=== PATIENT | male | born 1975 | race Caucasian/White ===

== ENCOUNTER 2023-08-19 08:06 | Outpatient (AMB) | payer BC, OTHER, SELFPAY ==
--- NOTE | 2023-08-19 08:07 | AM.OFFWIN_ITS ---
Intake Vital Signs 08/19/23 08:16 Height 5 ft 10 in Weight 287 lb BMI 41.2 BP 102/60 Blood Pressure Location Rt brachial Position Sitting Pulse 68 Pulse Source Pulse Oximeter Temp 97.8 F Temp Source Oral Pulse Oximetry (%) 97 Oxygen Delivery Method Room Air Intake Visit Reasons: EP DVT flare up Intake Note: pt is here for c/o diverticulitis flare up Patient Tobacco Use Status: Former Tobacco user Allergies No Known Allergies [NKA] Allergy (Verified 08/19/23 08:15) Do you need a note to return to daycare/school/sports/work: Yes HPI EP DVT flare up HPI Details This is a 48 year old patient who presents today with left lateral/anterior abdominal discomfort. He has a history of diverticulitis and had a resection for this when he was 18. He continued to have flares of diverticulitis starting about 5 years following surgery. He states he manages this with diet and food avoidances. He reports that flares typically start on his left side, and he has to go on antibiotics for this. Last flare was 1.5 years ago. He denies any blood in stool. He denies any fever, chills, or fatigue. Reports abdominal pain is a dull ache. He has been using a heating pad and taking some tylenol without relief. He could not get into his PCP at [facility] until next week. HPI Comments History of Present Illness Details 48 y/o male patient who presents to walk in clinic with c/o [facility] Social History Patient Tobacco Use Status: Former Tobacco user Review of Systems Const All systems reviewed & are unremarkable except as noted in HPI and below Physical Exam Vital Signs: Last Vital Signs Temp 97.8 F 08/19/23 08:16 Pulse 68 08/19/23 08:16 BP 102/60 08/19/23 08:16 Pulse Ox 97 08/19/23 08:16 Oxygen Delivery Method Room Air 08/19/23 08:16 BMI result Body Mass Index 41.2 Const General: cooperative, healthy appearing and no acute distress Nutritional Appearance: obese Neck Neck: Yes no lymphadenopathy Resp Effort & Inspection: normal respiratory effort Auscultation: clear to auscultation bilaterally Cardio Other: ICD implant Rate: regular rate Rhythm: regular rhythm GI Other: umb hernia - patient reports stable Inspection: Yes normal to inspection and Yes obesity Palpation (GI): Soft to palpation, Tenderness to palpation present (GI) in the LLQ (no guarding, no rebound ttp) and No hepatosplenomegaly present Auscultation: normal bowel sounds Skin General skin exam: no rashes or lesions noted Extrem General: Yes capillary refill normal and Yes no clubbing, cyanosis or edema Psych Appearance: grossly normal Mental Status: mental status grossly normal Speech and movement: Normal speech and movement present Assessment & Plan Assessment & Plan (1) Left lower quadrant abdominal pain: Code(s): R10.32 - Left lower quadrant pain Plan: History of diverticulitis - patient having similar symptoms to when he has a flare of this. He could not get into PCP. I am going to start him on PO Cipro and Metronidazole. He states he had a flare 1.5 years ago and this regimen resolved issue. We discussed at length that should his symptoms worsen, he develop any fever, chills, fatigue, blood in stool, or worsening pain, he should go to the ED for evaluation. We reviewed indications, use, and possible s/e of medications. We reviewed proper diet to follow and warning signs necessitating ED eval. He verbalizes understanding and agrees to plan. He should call for f/u with PCP. Medications: New ciprofloxacin HCl 500 mg PO Q12H 10 days 20 tabs 0RF K57.92 - Diverticulitis of intestine, part unspecified, without perforation or abscess without bleeding metronidazole 500 mg PO Q8H 10 days 30 tabs 0RF K57.92 - Diverticulitis of intestine, part unspecified, without perforation or abscess without bleeding Coding Level of Care Code Est Pt Level 4 (00566) Diagnoses Left lower quadrant abdominal pain R10.32
[2023-08-19 08:16] VITALS: BP 102/60; PULSE 68; TEMP 36.6; O2SAT 97; BMI 41.2
== END 2023-08-19 09:19 | disposition home or self-care (01) ==
PROVIDERS: PCP Internal Medicine; Visit Provider Nurse Practitioner Family
DX: R10.32 Left lower quadrant pain (principal)
CPT/HCPCS: 99214

== ENCOUNTER 2023-12-09 08:07 | Outpatient (AMB) | payer BC, SELFPAY ==
--- NOTE | 2023-12-09 08:13 | AM.OFFWIN_ITS ---
Intake Vital Signs 12/09/23 08:14 Height 5 ft 10 in Weight 281 lb BMI 40.3 BP 116/80 Blood Pressure Location Lt brachial Position Sitting Pulse 71 Pulse Source Pulse Oximeter Temp 98.1 F Temp Source Oral Pulse Oximetry (%) 95 Oxygen Delivery Method Room Air Intake Visit Reasons: EP diverticulitis flare up Intake Note: pt c/o diverticulitis flare. Started 2 days ago Patient Tobacco Use Status: Former Tobacco user Allergies No Known Allergies [NKA] Allergy (Verified 12/09/23 08:14) Do you need a note to return to daycare/school/sports/work: No HPI EP diverticulitis flare up HPI Details This note is constructed using voice recognition software. While every effort has been made to ensure accuracy, coil taper errors may have been included. The patient is a 48 year old male who presents to the clinic today with left lower quadrant pain, concern for diverticulitis flare. He notes that he has had diverticulitis since he was 18, and has intermittent flares. He was last seen in the clinic in August for the same. His flares typically start with left lower q uadrant pain, and some constipation. He typically then we will transition himself from a high-fiber diet to a low-fiber diet immediately to help resolve the symptoms. If he is diligent about getting treatment and getting on antibiotics, he avoids excess symptoms. 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 He denies fever, chills, nausea, vomiting, blood per rectum. [facility] Social History Patient Tobacco Use Status: Former Tobacco user Review of Systems Const All systems reviewed & are unremarkable except as noted in HPI and below Physical Exam Vital Signs: Last Vital Signs Temp 98.1 F 12/09/23 08:14 Pulse 71 12/09/23 08:14 BP 116/80 12/09/23 08:14 Pulse Ox 95 12/09/23 08:14 Oxygen Delivery Method Room Air 12/09/23 08:14 BMI result Body Mass Index 40.3 Const General: cooperative, healthy appearing, comfortable, no acute distress and alert Orientation/consciousness: patient oriented x3 Limitations: no limitations Neck Neck: Yes normal visual inspection, Yes full ROM and Yes no lymphadenopathy Resp Effort & Inspection: normal respiratory effort and able to speak in complete sentences Auscultation: clear to auscultation bilaterally Cardio Jugular venous distension: no JVD Palpation: normal PMI Rate: regular rate Heart sounds: S1 normal heart sound present, S2 normal heart sound present, no click, no gallops, no murmurs and no rubs GI Inspection: Yes normal to inspection Palpation (GI): Soft to palpation and Tenderness to palpation present (GI) in the LLQ Percussion: Yes normal to percussion Auscultation: normal bowel sounds Skin General skin exam: no rashes or lesions noted, elasticity normal and turgor normal Neuro General: patient oriented x3 Psych Appearance: grossly normal Mental Status: mental status grossly normal Speech and movement: Normal speech and movement present Affect: normal affect Assessment & Plan Assessment & Plan (1) Left lower quadrant abdominal pain: Code(s): R10.32 - Left lower quadrant pain Plan: Patient is likely experiencing diverticulitis flare based on symptom in history, we will start antibiotic ciprofloxacin and metronidazole. Advised patient to continue with low fiber diet and potentially clear liquid diet as tolerated gradually increasing his diet as symptoms resolve. Given that he has follow up with GI in less than one-week, I advised him to keep that appointment, as he will likely require repeat colonoscopy. Advised him to go to the ER with sudden worsening of symptoms including bright red blood per rectum, severe pain, and fevers. Plan See above for full details and plan. Medications: Refilled metronidazole 500 mg PO Q8H 10 days 30 tabs 0RF K57.92 - Diverticulitis of intestine, part unspecified, without perforation or abscess without bleeding ciprofloxacin HCl 500 mg PO Q12H 10 days 20 tabs 0RF K57.92 - Diverticulitis of intestine, part unspecified, without perforation or abscess without bleeding Coding Level of Care Code Est Pt Level 4 (86669) Diagnoses Left lower quadrant abdominal pain R10.32
[2023-12-09 08:14] VITALS: BP 116/80; PULSE 71; TEMP 36.7; O2SAT 95; BMI 40.3
== END 2023-12-09 08:48 | disposition home or self-care (01) ==
PROVIDERS: PCP Internal Medicine; Visit Provider Registered Nurse
DX: R10.32 Left lower quadrant pain (principal)
CPT/HCPCS: 99214

== ENCOUNTER 2024-04-21 08:02 | Outpatient (AMB) | payer BC, SELFPAY ==
[2024-04-21 08:09] VITALS: BP 108/72; PULSE 84; TEMP 36.6; O2SAT 96; BMI 41.6
--- NOTE | 2024-04-21 08:09 | AM.OFFWIN_ITS ---
Intake Vital Signs 04/21/24 08:09 Height 5 ft 10 in Weight 290 lb BMI 41.6 BP 108/72 Blood Pressure Location Lt brachial Position Sitting Pulse 84 Pulse Source Pulse Oximeter Temp 98 F Temp Source Oral Pulse Oximetry (%) 96 Oxygen Delivery Method Room Air Intake Visit Reasons: EP flare of diverticulitis Intake Note: Patient here for diverticulitis flare up since Thursday. Patient Tobacco Use Status: Former Tobacco user Allergies No Known Allergies [NKA] Allergy (Verified 04/21/24 08:14) HPI HPI Comments History of Present Illness Details History of Present Illness The patient is a 48-year-old male presenting with a flare-up of diverticulitis for the last few days. - The symptoms include discomfort on the lower left side, typical of diverticulitis flare-ups. - No systemic symptoms such as fever, ch ills, or gastrointestinal bleeding are reported. - The patient has a history of diverticu losis since 2016, managed previously with metronidazole, resulting in nausea. - Prior imaging and consultation with a larder cook showed no need for further invasive diagnostic procedures, in late November. - Additional medical history includes an umbilical hernia and previous surgical history of appendectomy. Physical Exam General: Cooperative, healthy appearing, comfortable, no acute distress and well developed Orientation: Patient oriented x3 Limitations: No limitations Head: Normal to inspection Ears: Hearing grossly normal bilaterally Nose: Normal external nose present Face and sinus: Normal facial exam Eyes: Appearance normal, both eyes and all related structures Neck: Normal visual inspection and Yes full ROM Respiratory: Normal respiratory effort and able to speak in complete sentences. GI: obese abdomen with reducible periumbilical hernia present, soft, TTP LLQ Skin: No rashes or lesions noted Neuro: Patient oriented x3 Extremities: Normal to inspection [facility] Social History Patient Tobacco Use Status: Former Tobacco user Review of Systems Const All systems reviewed & are unremarkable except as noted in HPI and below Physical Exam Vital Signs: Last Vital Signs Temp 98 F 04/21/24 08:09 Pulse 84 04/21/24 08:09 BP 108/72 04/21/24 08:09 Pulse Ox 96 04/21/24 08:09 Oxygen Delivery Method Room Air 04/21/24 08:09 BMI result Body Mass Index 41.6 Assessment & Plan Assessment & Plan (1) Diverticulitis: Code(s): K57.92 - Diverticulitis of intestine, part unspecified, without perforation or abscess without bleeding Plan: Plan The patient will start treatment with amoxicillin/clavulanate to manage the acute flare-up of diverticulitis. This regimen is expected to be an effective alternative with fewer side effects. The importance of monitoring for any adverse events or lack of symptom improvement is emphasized, with instructions to alert the clinic if these occur. The patient's umbilical hernia management focuses on weight loss, with surgery as a potential future option. Existing medications should continue unless interactions are noted, and any new symptoms like fever or changes in stool should be promptly reevaluated. The patient's history of appendectomy is noted. If pt experiences fever, chills, bloody or black diarrhea or wosening pain, he should go to the ED for further work up. Patient was informed and verbally consented to the use of an ambient scribe for clinic note documentation during this visit. Medications: New amoxicillin-pot clavulanate 875-125 mg 1 tab PO Q8H 30 tabs 0RF 10 days Coding Level of Care Code New Pt Level 3 (08990) Diagnoses Diverticulitis K57.92
== END 2024-04-21 08:44 | disposition home or self-care (01) ==
PROVIDERS: PCP Internal Medicine; Visit Provider Physician Assistant
DX: K57.92 Diverticulitis of intestine, part unspecified, without perforation or abscess without bleeding (principal)

== ENCOUNTER → 2024-04-21 08:02 | Outpatient (BNVA) | payer BC, SELFPAY | PROVIDERS: PCP Internal Medicine; Visit Provider Physician Assistant ==

== ENCOUNTER 2024-07-01 08:00 | Outpatient (AMB) | payer BC, SELFPAY ==
--- OUTSIDE RECORDS SUMMARY | 2024-07-01 08:02 | XMS_ITS | Encounter Summary ---
Author Organization [facility] Address [address] [place] [address] Care Team Providers Care Ekg Monitor Name Role Phone Gabriel Berumen MD Primary Care Provider [phone] Encounter Details Date Type Department Care Team Description 09/17/2023 Pasteurizing Supervisor Report Medical Records [address] [place] [address] Leelee Saldaña MD Social History Tobacco Use Types Packs/Day Years Used Date Smoking Tobacco: Some Days Cigarettes 0.5 20 Started: 1987 Smokeless Tobacco: Former Comments:vaping//started @ a ge 11 Alcohol Use Standard Drinks/Week Comments No 0 (1 standard drink = 0.6 oz pure alcohol) 4-6 drinks per mo/last drink June 20/2018 Sex Assigned at Date Recorded Not on file Job Start Date Occupation Industry Not on file Not on file Not on file documented as of this encounter Plan of Treatment Not on file documented as of this encounter Visit Diagnoses Not on filedocumented in this encounter Care Teams Ekg Monitor Relationship Specialty Start Date End Date Gabriel Berumen MD [address], [place] [id number] PCP - General Internal Medicine 07/15/21 documented as of this encounter
--- OUTSIDE RECORDS SUMMARY | 2024-07-01 08:02 | XMS_ITS | Encounter Summary ---
Author Organization [facility] Address [address] [place] [address] Care Team Providers Care Clinic Office Coordinator Name Role Phone Rosario Hernandez MD Primary Care Provider [phone] Gabriel Berumen MD Primary Care Provider [phone] Encounter Details Date Type Department Care Team Description 01/02/2016 Transfer Records Medical Records [address] [place] [id number] Abstract, Provider Social History Tobacco Use Types Packs/Day Years Used Date Smoking Tobacco: Every Day Cigarettes 0.3 20 Started: 1987 Cigars Smokeless Tobacco: Never Comments:vaping//started @ a ge 11 Alcohol Use Standard Drinks/Week Comments Yes 0 (1 standard drink = 0.6 oz pur e alcohol) 4-6 drinks per mo Sex Assigned at Date Recorded Not on file Job Start Date Occupation Industry Not on file Not on file Not on file documented as of this encounter Plan of Treatment Not on file documented as of this encounter Visit Diagnoses Not on filedocumented in this encounter Care Teams Clinic Office Coordinator Relationship Specialty Start Date End Date Rosario Hernandez MD [address] [place] [address] [id number] PCP - General Internal Medicine 09/14/20 07/14/21 Gabriel Berumen MD [address] [place] [address] [phone] PCP - General Internal Medicine 07/15/21 documented as of this encounter
--- OUTSIDE RECORDS SUMMARY | 2024-07-01 08:02 | XMS_ITS | Encounter Summary ---
Author Organization [facility] Address [address] [place] [address] Care Team Providers Care Melt Down Furnace Operator Name Role Phone Gabriel Berumen MD Primary Care Provider [phone] Encounter Details Date Type Department Care Team Description 01/06/2023 Orders Only Medical Records [address] [place] [id number] Abstract, Provider Social History Tobacco Use Types [...] on file documented as of this encounter Procedures Procedure Name Priority Date/Time Associated Diagnosis Comments OUTSIDE ECHO Routine 10/06/2022 documented in this encounter Results * OUTSIDE ECHO (10/06/2022) Provider Abstract CARDIOLOGY documented in this encounter Visit Diagnoses Not on filedocumented in this encounter Care Teams Melt Down Furnace Operator Relationship Specialty Start Date End Date Gabriel Berumen MD [address] [place] [phone] PCP - General Internal Medicine 07/15/21 documented as of this encounter
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
--- OUTSIDE RECORDS SUMMARY | 2024-07-01 08:02 | XMS_ITS | Encounter Summary ---
Author Organization [facility] Address [address] [place] [address] Care Team Providers Care Blind Eyeletter Name Role Phone Rosario Hernandez MD Primary Care Provider [phone] Gabriel Berumen MD Primary Care Provider [phone] Reason for Visit * Reason Onset Date Comments REFERRAL 10/26/2017 Dermatology Encounter Details Date Type Department Care Team Description 10/26/2017 Telephone Dermatology - [address] [phone] Gabriel Berumen MD [address] [place] [address] [phone] REFERRAL (Dermatology) Social History Tobacco Use Types Packs/Day Years Used Date Smoking Tobacco: Light Smoker Cigarettes 0.3 20 Started: 1987 Cigars Smokeless Tobacco: Never Comments:vaping//started @ a ge 11 Alcohol Use Standard Drinks/Week Comments No 0 (1 standard drink = 0.6 oz pure alcohol) 4-6 drinks per mo/last drink June 20/2018 Sex Assigned at Date Recorded Not on file Job Start Date Occupation Industry Not on file Not on file Not on file documented as of this encounter Miscellaneous Notes * Telephone Encounter - Opal David - 10/26/2017 8:27 AM EDT I have been unable to reach this patient by phone. A letter is being sent to the last known home address. Reason for referral: skin lesion left cheek for > 20 years ? Enlarging please help with diagnosis documented in this encounter Plan of Treatment Not on file documented as of this encounter Visit Diagnoses Not on filedocumented in this encounter Care Teams Blind Eyeletter Relationship Specialty Start Date End Date Rosario Hernandez MD [address] [place] [phone] PCP - General Internal Medicine 09/14/20 07/14/21 Gabriel Berumen MD [address] [place] [phone] PCP - General Internal Medicine 07/15/21 documented as of this encounter
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
--- OUTSIDE RECORDS SUMMARY | 2024-07-01 08:02 | XMS_ITS | Encounter Summary ---
Author Organization [facility] Address [address] [place] [address] Care Team Providers Care Order Detailer Name Role Phone Gabriel Berumen MD Primary Care Provider [phone] Encounter Details Date Type Department Care Team Description 12/09/2023 Oil Seal Assembler Report Medical Records [address] [place], [place] [phone] [place] [address], [facility] Walk-In [facility] [place] [address] Social History Tobacco Use Types Packs/Day Years [...] on filedocumented in this encounter Care Teams Order Detailer Relationship Specialty Start Date End Date Gabriel Berumen MD [address] [place], [place] [phone] PCP - General Internal Medicine 07/15/21 documented as of this encounter
--- OUTSIDE RECORDS SUMMARY | 2024-07-01 08:03 | XMS_ITS | Encounter Summary ---
Author Organization [facility] Address [address] [place] [address] Care Team Providers Care Swinging Cut Off Saw Operator Name Role Phone Rosario Hernandez MD Primary Care Provider [phone] Gabriel Berumen MD Primary Care Provider [phone] Encounter Details Date Type Department Care Team Description 05/29/2020 It Quality Assurance Analyst Report Medical Records [address] [place] [address] Dave Hurst PA-C Social History Tobacco Use Types Packs/Day Years Used Date Smoking Tobacco: Every Day Cigarettes 0.5 20 Started: 1987 Smokeless Tobacco: Never Comments:vaping//started @ a ge 11 Alcohol Use Standard Drinks/Week Comments No 0 (1 standard drink = 0.6 oz pure alcohol) 4-6 drinks per mo/last drink June 20/2018 Sex Assigned at Date Recorded Not on file Job Start Date Occupation Industry Not on file Not on file Not on file COVID-19 Exposure Response Date Recorded In the last month, have you been in contact with someone who was confirmed or suspected to have Coronavirus / COVID-19? No / Unsure 06/01/2020 8:22 AM EST documented as of this encounter Plan of Treatment Not on file documented as of this encounter Visit Diagnoses Not on filedocumented in this encounter Care Teams Swinging Cut Off Saw Operator Relationship Specialty Start Date End Date Rosario Hernandez MD [address] [place] [phone] PCP - General Internal Medicine 09/14/20 07/14/21 Gabriel Berumen MD [address] [place] [address] PCP - General Internal Medicine 07/15/21 documented as of this encounter
--- OUTSIDE RECORDS SUMMARY | 2024-07-01 08:03 | XMS_ITS | Encounter Summary ---
Author Organization [facility] Address [address] [place] [address] Care Team Providers Care Bar Examiner Name Role Phone Gabriel Berumen MD Primary Care Provider [phone] Encounter Details Date Type Department Care Team Description 04/07/2022 Stull Hewer Report Medical Records [address] [place] [address] Leelee Saldaña MD Social History Tobacco Use [...] on filedocumented in this encounter Care Teams Bar Examiner Relationship Specialty Start Date End Date Gabriel Berumen MD [address] [place], [place] [phone] PCP - General Internal Medicine 07/15/21 documented as of this encounter
--- OUTSIDE RECORDS SUMMARY | 2024-07-01 08:03 | XMS_ITS | Encounter Summary ---
Author Organization [facility] Address [address] [place] [address] Care Team Providers Care Lighting Designer Name Role Phone Gabriel Berumen MD Primary Care Provider [phone] Reason for Visit * Reason Onset Date Comments prior auth 05/04/2024 Anjel Encounter Details Date Type Department Care Team (Late st Contact Info) Description 05/04/2024 Telephone Adult Medicine [address] [phone] Gabriel Berumen MD [address] [place] [phone] prior auth (Flac[employer]) Social History Tobacco Use Types Packs/Day Years Used Date Smoking Tobacco: Some Days Cigarettes 0.5 37.2 Started: 1986 Smokeless Tobacco: Former Alcohol Use Standard Drinks/Week Comments No 0 (1 standard drink = 0.6 oz pur e alcohol) Dependent Care Answer Date Recorded Do you need help finding or paying for care for your loved ones. For example, child development instructor or elderly care for an older adult? [...] on file Sexual Orientation Not on file documented as of this encounter Progress Notes * Leti Katz MA - 05/09/2024 10:11 AM EST Prior authorization completed on cmm using bin pcn with group and id from registration. Cmm message states The wet pan mixer is not the PA processor for this patient and medication combination. They give a phyone number but its only for alee life coaches , for sign up or already a member. Need to call the pharmacy * Nubia Huff - 05/04/2024 10:14 AM EST Prior Authorization for Medication-do not complete and send this encounter unless you have the fax from the pharmacy. Is this a Cover My Meds request: [place] of Medication [place] Dose of Medication 0.25mg/0.5mL What is the RX # from the faxed refill? How does patient take this med? Inject 0.25 mg under the skin every 7 (seven) days. What Pharmacy did the fax come from: Pharmacy fax #: [facility] Information from fax: What Prescription Plan does the patient have? [employer] BIN/PCN if applicable: [id number] Cardholder ID: [id number] Person Code: 01 Relationship Code: 01 Help desk phone: documented in this encounter Plan of Treatment Upcoming Encounters Date Type Department Care Team (Late st Contact Info) Description 07/04/2024 10:00 AM EDT Office Visit Orthopedic Surgery - [place] [address] [phone] Adrien Kingston, DPAlyx [address] [address] 08/09/2024 8:00 AM EDT Office Visit Adult [address] [phone] Alecia Ojeda PA [address] [place] [address] 08/17/2024 7:30 AM EDT Office Visit Adult Medicine [address] [phone] Alecia Ojeda PA [address] [place] [address] documented as of this encounter Visit Diagnoses Not on filedocumented in this encounter Additional Health Concerns Assessment Noted Time PHQ-9 Depression Total Score: 0 04/27/19 25 6:21 PM EST documented as of this encounter Care Teams Lighting Designer Relationship Specialty Start Date End Date Gabriel Berumen MD [address] [place] [phone] PCP - General Internal Medicine 02/12/15 documented as of this encounter
--- OUTSIDE RECORDS SUMMARY | 2024-07-01 08:03 | XMS_ITS | Encounter Summary ---
Author Organization [facility] Address [address] [place] [address] Care Team Providers Care Head Stock Operator Name Role Phone Rosario Hernandez MD Primary Care Provider [phone] Gabriel Berumen MD Primary Care Provider [phone] Reason for Visit * Reason Onset Date Comments medication problems 08/12/2017 Encounter Details Date Type Department Care Team Description 08/12/2017 Telephone Adult Medicine [address] [phone] Gabriel Berumen MD [address] [place] [address] [phone] medication problems Social History Tobacco Use Types Packs/Day Years [...] encounter Miscellaneous Notes * Telephone Encounter - Elva Lackey L.P.N. - 08/12/2017 1:02 PM EDT Received fax , message entered, spoke with Mateo She will work on it now * Telephone Encounter - Elva Lackey L.PStefanoN. - 08/12/2017 12:18 PM EDT Spoke with pt There Is No PA noted Thursday was the last day of med's Called pharmacy, they will refax to Me in pod * Telephone Encounter - Connie Fleming - 08/12/2017 10:15 AM EDT What is the name of the medication patient is having a problem with?: Apixaban (ELIQUIS) 5 MG Tab What is the problem?: Patient states that he needs a PA for this medication and that he is currently out, patient states that pharmacy will fax PA but he is nervous about not taking this medication for a few days Is the patient calling about the problem? YES If the patient is not the caller who is? Is this a NEW medication?: NO How long has the patient been taking this medication? Who prescribed this medication for the patient? Gabriel Berumen Who is patients PCP?: Gabriel Berumen Payor: [facility] / Plan: [employer] $0 DEEPA [id number] / Product Type: MEDICAID [id number] documented in this encounter Plan of Treatment Not on file documented as of this encounter Visit Diagnoses Not on filedocumented in this encounter Care Teams Head Stock Operator Relationship Specialty Start Date End Date Rosario Hernandez MD [address] [place] [phone] PCP - General Internal Medicine 09/14/20 07/14/21 Gabriel Berumen MD [address] [place] [phone] PCP - General Internal Medicine 07/15/21 documented as of this encounter
--- OUTSIDE RECORDS SUMMARY | 2024-07-01 08:03 | XMS_ITS | Encounter Summary ---
Author Organization [facility] Address [address] [place] [address] Care Team Providers Care Wood Machine Carver Name Role Phone Rosario Hernandez MD Primary Care Provider [phone] Gabriel Berumen MD Primary Care Provider [phone] Encounter Details Date Type Department Care Team Description 07/05/2018 Opto Mechanical Engineer Report Medical Records [address] [place] [phone] Lobito Simon Social History Tobacco Use Types Packs/Day Years Used Date Smoking Tobacco: Former Cigarettes 0.3 20 S tarted: 1986 Cigars Smokeless Tobacco: Never Comments:vaping//started @ [...] on filedocumented in this encounter Care Teams Wood Machine Carver Relationship Specialty Start Date End Date Rosario Hernandez MD [address] [place] [address] PCP - General Internal Medicine 09/14/20 07/14/21 Gabriel Berumen MD [address] [place] [address] [phone] PCP - General Internal Medicine 07/15/21 documented as of this encounter
--- OUTSIDE RECORDS SUMMARY | 2024-07-01 08:03 | XMS_ITS | Encounter Summary ---
Author Organization [facility] Address [address] [place] [address] Care Team Providers Care Road Roller Operator Name Role Phone Rosario Hernandez MD Primary Care Provider [phone] Gabriel Berumen MD Primary Care Provider [phone] Encounter Details Date Type Department Care Team Description 06/18/2018 Orders Only Medical Records [address] [place] [address] Mariah Campbell PA-C Social History Tobacco Use Types Packs/Day [...] Name Priority Date/Time Associated Diagnosis Comments OUTSIDE LAB Routine 06/17/2018 documented in this encounter Results * OUTSIDE LAB (06/17/2018) Mariah Campbell PA-C LAB documented in this encounter Visit Diagnoses Not on filedocumented in this encounter Care Teams Road Roller Operator Relationship Specialty Start Date End Date Rosario Hernandez MD [address] [place] [address] PCP - General Internal Medicine 09/14/20 07/14/21 Gabriel Berumen MD [address] [place] [address] PCP - General Internal Medicine 07/15/21 documented as of this encounter
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
--- OUTSIDE RECORDS SUMMARY | 2024-07-01 08:03 | XMS_ITS | Data Portability ---
Author Organization SERGIO Valdovinos s, [address] Address [address] [place] [address] Care Team Providers Care Asp Net Mvc Developer Name Role Phone LAURI THOMPSON Primary Care Provider [phone] Assessment Encounter Date Assessment Date Assessment LastModified by Organization Details LastModified Time 05/14/2022 05/14/2022 Known Covid infection. Positive rapid test. CDC guidelines reviewed. [email or web address] Not available 05/14/2022 10:40:37 Plan of Treatment Reminders Order Date Submit Date Provider Last Modified By Organization Details Last Modified Time Details Appointments None recorded. Lab rapid SARS CoV 2 Ag, QL IA, respiratory specimen 2022 023 yaima ne1 _[facility], [address] [place] [address], [phone], 3 10:32:09 rapid strep group A, throat 2022 023 irais _[facility], [address] [place] [address], [phone], 3 19:00:00 rapid flu (A+B) 2022 023 irais _[facility], [address] [place] [address], [phone], 3 19:00:00 rapid SARS CoV 2 Ag, QL IA, respiratory specimen 2022 023 irais [facility], [address] [place], [address], 3 19:00:00 Referral None recorded. Procedures None recorded. Surgeries None recorded. Imaging None recorded. Medication Orders ciprofloxac in [address] [id number], [address] [place], [address], 3 08:33:32 metronidazo le 500 mg tablet [address] [id number], [address] [place], [address], 3 08:33:32 Paxlovid 300 mg (150 mg x 2)-100 mg tablets in a dose pack 2022 023 [email or web address] [id number], [address] [place], [address], 3 08:12:09 Patient TargetsNo targets recorded. Patient Instructions Encounter Date Encounter Id Patient Instructions Last Modified By Organization Details Last Modified Time 05/10/2022 [id number] Fever: Care Instructions Not available 05/10/2022 19:00:00 cough: care instructions Not available 05/10/2022 19:00:00 If you test positive for COVID-19, stay home for at least 5 days and isolate from others in your home. ?You are likely most infectious during these first 5 days. ?Wear a high-quality mask if you must be around others at home and in public. Do not go places where you are unable to wear a mask. For travel guidance, see [facility]? s Travel webpage. Do not travel. Stay home and separate from others as much as possible. Use a separate bathroom, if possible. Take steps to improve ventilation at home, if possible. Don? t share personal household items, like cups, towels, and utensils. Monitor your symptoms. If you have an emergency warning sign (like trouble breathing), seek emergency medical care immediately. If you had symptoms and: Your symptoms are improving You may end isolation after day 5 if: ?You are fever-free for 24 hours (without the use of fever-reducing medication). Your symptoms are not improving Continue to isolate until: ?You are fever-free for 24 hours (without the use of fever-reducing medication). Your symptoms are improving. ?Regardless of when you end isolation Until at least day 11: Avoid being around people who are more likely to get very sick from COVID-19. Remember to wear a high-quality mask when indoors around others at home and in public. Do not go places where you are unable to wear a mask until you are able to discontinue masking (see below). For travel guidance, see [facility]? s Travel webpage. Not available 05/10/2022 19:02:23 Sinusitis is an infection of the lining of the sinus cavities in your head. Sinusitis often follows a cold. It causes pain and pressure in your head and face. In most cases, sinusitis gets better on its own in 1 to 2 weeks. But some mild symptoms may last for several weeks. Sometimes antibiotics are needed. if you are having problems. It's also a good idea to know your test results and keep a list of the medicines you take. How can you care for yourself at home? Take an ckwn-dig-cpgjuob pain medicine. Avoid Ibuprofen, Aleve and Aspirin if . If the doctor prescribed antibiotics, take them as directed. Do not stop taking them just because you feel better. You need to take the full course of antibiotics. Be careful when taking ixbp-twl-lovtrgs cold or influenza (flu) medicines and Tylenol at the same time. Many of these medicines have acetaminophen, which is Tylenol. Read the labels to make sure that you are not taking more than the recommended dose. Too much acetaminophen (Tylenol) can be harmful. Breathe warm, moist air from a steamy shower, a hot bath, or a sink filled with hot water. Avoid cold, dry air. Using a humidifier in your home may help. Follow the directions for cleaning the machine. Use saline (saltwater) nasal washes. This can help keep your nasal passages open and wash out mucus and bacteria. You can buy saline nose drops at a grocery store or drugstore. Or you can make your own at home by adding 1 teaspoon (5 millilitres) of salt and 1 teaspoon (5 millilitres) of baking soda to 2 cups (500 mL) of distilled water. If you make your own, fill a bulb syringe with the solution, insert the tip into your nostril, and squeeze gently. Blow your nose. Put a hot, wet towel or a warm gel pack on your face 3 or 4 times a day for 5 to 10 minutes each time. Try a decongestant nasal spray like oxymetazoline (Drixoral). Do not use it for more than 3 days in a row. Using it for more than 3 days can make your congestion worse. Use over the counter medications for your sore throat. Basic lozenges (cough drops) or lozenges with an anesthetic (numbing agent) can be used as needed for quick results; look for the active ingredient, benzocaine, for numbing lozenges (like Cepacol Extra or Chloraseptic Max). Gargling with warm salt water can also relieve pain. Dissolve 1/4 to 1/2 teaspoon in 8-ounces of warm water; gargle and spit salt solution every hour, as needed. Sore throat pain can also be reduced by taking regular doses of acetaminophen (tylenol) or ibuprofen (Advil); if you are given a prescription of PREDNISONE, you may continue to take acetamminophen, but do not take ibuprofen or naprosyn. While this isn't quick, it can significantly reduce pain within an hour after taking. Please switch toothbrush after being on antibiotic for 24 hrs. You should follow-up with your PCP in days, or at any time if your condition does not improve or worsens. Any acute change should prompt a visit to the nearest Emergency Department. . [email or web address] Not available 05/10/2022 19:02:40 05/14/2022 [id number] coronavirus (covid-19): care instructions Not available 05/14/2022 10:32:09 Complete your 5t h day of isolation at home with a mask. Starting tomorrow, you can complete 5 days of masking in public. Repeat a rapid Covid test in 2 days (Ok to purchase from your local pharmacy) Not available 05/14/2022 10:33:25 10/24/2022 [id number] diverticulitis: care instructions Not available 10/24/2022 08:33:27 With your histor y of diverticulitis - it would be appropriate to do a trial of antibiotics at home. However, if you do not have improvement in 2-3 days - then you need to go to the Emergency Room. Approximately 85 percent of people with uncomplicated diverticulitis will respond to medical treatment, while approximately 15 percent of patients will need an operation. Diverticiulitis is the inflammation of a diverticulum (diverticulitis) This means that there potentially be a breakdown of the colon wall. This may be caused by increased pressure within the colon or by hardened particles of stool, which can become lodged within the diverticulum. The symptoms of diverticulitis depend upon the degree of inflammation present. The most common symptom is pain in the left lower abdomen. Other symptoms can include: 1. Nausea 2. Vomiting 3. Constipation 4. Diarrhea 5. Urinary Symptoms. For this condition you should: 1. Stick to a liquid diet for the next few days 2. Take Ibuprofen or Tylenol for pain relief. Do not take either of these if you have an allergy - and those on a blood thinner should avoid Ibuprofen. If you develop: 1. Fever > 100.3 2. Worsening or Severe Abdominal Pain 3. Inability to tolerate fluids 4. Rectal Bleeding You should go directly to the Emergency Room - you would require to have a CT scan to see the extent of the inflammation or see if there is an abscess that would require surgery. Please don't hesitate to contact our office if you have any questions or concerns. Thank you for using [employer]. [email or web address] Not available 10/24/2022 08:25:03 Reason for Referral None Reported. Results Created Date Observation Date Name Description Value Unit Range Abnormal Flag Note LastModifiedBy Organization Detail LastModifiedTime 05/10/19 23 05/10/2022 rapid SARS CoV 2 Ag, QL IA, respi rator y speci men Unknown Analyte Normal =Negat talia Not Available [address] [place] [address], [address], 05/10/2022 18:08:25 05/10/19 23 05/10/2022 rapid SARS CoV 2 Ag, QL IA, respi rator y speci men Unknown Analyte positi ve Not Available [address] [place] [address], [place], [address], 05/10/2022 18:08:25 05/10/19 23 05/10/2022 rapid strep group A, throa t Unknown Analyte Normal = Negati ve Not Available [address] [place] [address], [place], [address], 05/10/2022 18:08:36 05/10/19 23 05/10/2022 rapid strep group A, throa t Unknown Analyte negati ve Not Available [address] [place] [address], [place], [address], 05/10/2022 18:08:36 05/10/19 23 05/10/2022 rapid flu (A+B) Unknown Analyte Normal = Negati ve Not Available [address] [place] [address], [place], [address], 05/10/2022 18:08:30 05/10/19 23 05/10/2022 rapid flu (A+B) Unknown Analyte Normal = Negati ve Not Available [address] [place] [address], [place], [address], 05/10/2022 18:08:30 05/10/19 23 05/10/2022 rapid flu (A+B) Unknown Analyte negati ve Not Available [address] [place] [address], [place], [address], 05/10/2022 18:08:30 05/10/19 23 05/10/2022 rapid flu (A+B) Unknown Analyte negati ve Not Available _[address], [place], [address], 05/10/2022 18:08:30 05/14/1905/14/2022 rapid SARS CoV 2 Ag, QL IA, respi rator y speci men Unknown Analyte positi ve Not Available [address] [place], [address], 05/14/2022 09:14:33 05/14/19 23 05/14/2022 rapid SARS CoV 2 Ag, QL IA, respi rator y speci men Unknown Analyte Normal =Negat talia Not Available [address], [place], [address], 05/14/2022 09:14:33 Result Notes None recorded. Problems Name Problem SNOMED Code Status Onset Date Resolution Date Notes Provider Name and Address Organization Details Recorded Time Diverticulitis 258873302 Active Dorita bush PA - [facility] 3 08:12:48 Myocardial infarction 23351981 Active 2021 PATRICK bush PA - [facility] 3 18:05:36 Prediabetes 671549613 Active 2022 PATRICK bush PA - [facility] 3 18:21:50 Problem Notes None recorded. Procedures Surgical History Date Name Laterality Status Provider Name and Address Organization Details Recorded Time Appendectomy completed PATRICK MARTINEZ PA - [facility] 05/10/2022 18:06:34 Imaging Results None recorded. Procedure Notes None recorded. Medical Equipment None Reported. Allergies No known drug allergies Medications Name Sig Start Date Stop Date Status Note LastModified by Organization Details LastModified Time metronidazol e 500 mg tablet Take 1 tablet 3 times a day by oral route for 7 days. 2022 active Not Available Not Available Not Avai lable ciprofloxaci n 500 mg tablet Take 1 tablet twice a day by oral route for 10 days. 2022 active Not Available Not Available Not Avai lable atorvastatin active Not Available Not Available Not Available aspirin active Not Available Not Avail able Not Available carvedilol 10/24 completed Not Available Not Available Not Available spironolacto ne active Not Available Not Available Not Available metoprolol succinate active Not Available Not Available No t Available Brilinta active Not Available Not Avai lable Not Available Farxiga active Not Available Not Avail able Not Available Entresto active Not Available Not Avai lable Not Available Paxlovid 300 mg (150 mg x 2)-100 mg tablets in a dose pack Take 3 tablets twice a day by oral route with meals for 5 days. 10/24 completed Not Available Not Available Not Available Vitals Date Recorded Body height Body mass index (BMI) Body weight Respiratory rate Pain severity - 0-10 verbal numeric rating [Score] - Reported Heart rate Body temperature Oxygen saturation Oxygen saturation in Arterial blood by Pulse oximetry Systolic blood pressure Diastolic blood pressure Provider Name and Address Organization Details Last Updated DateTime 3 177.8 cm 34.4 kg/m2 832535. 17 g 16 /min 1 78 /min 98 [degF] 94 % 94 % 102 mm[Hg] 70 mm[Hg] Dorita Patel [facility] 3 08:15:02 Date Recorded Body height Body mass index (BMI) Body weight Body temperature Oxygen saturation Oxygen saturation in Arterial blood by Pulse oximetry Heart rate Respiratory rate Systolic blood pressure Diastolic blood pressure Provider Name and Address Organization Details Last Updated DateTime 3 177.8 cm 34.4 kg/m2 149803. 17 g 96.8 [degF] 97 % 97 % 84 /min 18 /min 102 mm[Hg] 68 mm[Hg] PATRICK MARTINEZ [facility] 3 18:08:05 Date Recorded Body height Body mass index (BMI) Body weight Respiratory rate Heart rate Oxygen saturation Oxygen saturation in Arterial blood by Pulse oximetry Pain severity - 0-10 verbal numeric rating [Score] - Reported Body temperature Systolic blood pressure Diastolic blood pressure Provider Name and Address Organization Details Last Updated DateTime 3 177.8 cm 34.4 kg/m2 789796. 17 g 18 /min 84 /min 98 % 98 % 0 98 [degF] 100 mm[Hg] 68 mm[Hg] JUNE SALINAS SERGIO [place] [facility] 3 09:18:12 Social History Question Answer Notes LastModified by Organizat ion Details LastModified Time Tobacco Smoking Status Former Smoker SERGIO Ambrosio [facility] 05/10/2022 18:06:21 What Is Your Level Of Alcohol Consumption? None Information not available 05/10/2022 Are You Currently Employed? Yes Information not available 05/10/2022 Which Illicit Or Recreational Drugs Have You Used? Marijuana Information not available 05/10/2022 Have You Had Direct Contact, Or Contact During Intimacy, With Monkeypox Rash, Scabs, Or Body Fluids From A Person With Monkeypox? No Information not available 05/10/2022 Do You Use Any Illicit Or Recreational Drugs? Yes Information not available 05/10/2022 Have You Recently Traveled Abroad? No Information not available 05/10/2022 Are You Currently In School? Yes [email or web address] Information not available 10/24/2022 Do You Or Have You Ever Used Any Other Forms Of Tobacco Or Nicotine? No Information not available 05/10/2022 Sex: Unknown Functional Status None recorded. Mental Status None recorded. Family History Relationship Description Onset Age of this Age Resolved Age Notes LastModified by Organization Details LastModified Time Mother Heart disease Not available 05/10 18:05:55 Medical History No medical history recorded. Immunizations Vaccine Type Date Status Note Provider Nam e and Address Organization Details Recorded Time COVID-19, mRNA, LNP-S, PF, 30 mcg/0.3 mL dose 1 completed SERGIO Ambrosio [facility] 05/10/2022 18:04:13 Influenza, split virus, trivalent, preservative 5 completed SERGIO Ambrosio [facility] 05/10/2022 18:04:13 COVID-19, mRNA, LNP-S, PF, 30 mcg/0.3 mL dose 1 completed PATRICK GOODHIND null, PA - [facility] 05/10/2022 18:04:13 Influenza, MDCK, quadrivalent, PF 7 completed PATRICK GOODHIND null, PA - [facility] 05/10/2022 18:04:13 Influenza, MDCK, quadrivalent, PF 9 completed PATRICK GOODHIND null, PA - [facility] 05/10/2022 18:04:13 COVID-19, mRNA, LNP-S, bivalent, PF, 30 mcg/0.3 mL dose 2 completed PATRICK GOODHIND null, PA - [facility] 05/10/2022 18:04:13 Influenza, split virus, quadrivalent, PF 1 completed PATRICK GOODHIND null, PA - [facility] 05/10/2022 18:04:13 Influenza, split virus, quadrivalent, PF 0 completed PATRICK GOODHIND null, PA - [facility] 05/10/2022 18:04:13 COVID-19, mRNA, LNP-S, PF, 30 mcg/0.3 mL dose 1 completed PATRICK GOODHIND null, PA - [facility] 05/10/2022 18:04:13 COVID-19, mRNA, LNP-S, PF, 30 mcg/0.3 mL dose 2 completed PATRICK GOODHIND null, PA - [facility] 05/10/2022 18:04:14 Influenza, split virus, quadrivalent, PF 2 completed PATRICK GOODHIND null, PA - [facility] 05/10/2022 18:04:14 Tdap 6 completed PATRICK GOODHIND null, PA - [facility] 05/10/2022 18:04:14 Past Encounters Encounter ID Performer Location Encounter Start Date Encounter Closed Date Diagnosis/Indication Diagnosis SNOMED-CT Code Diagnosis ICD10 Code Diagnosis Note [id number] [address] [place] [address] 08/12/2020 08:18:03 08/12/2020 09:36:57 [id number] [address] [facility] [place] [address] 12/23/2019 17:12:40 12/23/2019 18:34:32 [id number] [address] [facility] [place] [address] 08/24/2018 18:51:04 08/24/2018 19:45:33 [id number] [address] [facility] [place] [address] 05/01/2019 16:26:41 05/01/2019 17:08:28 [id number] [address] [facility] [place] [address] 09/21/2018 15:08:23 09/21/2018 16:27:01 [id number] [address] [facility] [place] [address] 01/23/2020 16:10:27 01/23/2020 18:09:42 [id number] [address] [place] [address] 02/12/2021 15:34:54 02/12/2021 17:03:42 [id number] [address] [place] [address] 06/21/2021 08:02:31 06/21/2021 08:48:54 [id number] [address] [place] [address] 04/09/2021 08:06:00 04/09/2021 09:42:12 [id number] [address] [facility] [place] [address] 03/09/2018 09:14:23 03/09/2018 09:52:54 [id number] [address] [facility] [place] [address] 11/18/2019 08:16:47 11/18/2019 09:22:35 [id number] [address] [facility] [place] [address] 09/15/2021 09:16:42 09/15/2021 09:59:20 [id number] [address] [place] [address] 11/14/2021 11:42:50 11/14/2021 13:00:39 [id number] [address] [facility] [place] [address] 02/11/2018 17:34:47 02/11/2018 19:16:03 [id number] Mando Orlando [employer] [address] [facility] [place] [address] 05/10/2022 17:27:25 05/10/2022 19:10:52 Exposure to SARS-CoV-2 450191931 Z20.822 COVID-19 646548143 U07.1 Patient to follow up with his cardiologi st regarding paxlovid use . patient agree with plan. Sore throat 761252654 J0 2.9 [id number] Eh Hull DO [address] [facility] [place] [address] 05/14/2022 08:16:47 05/14/2022 10:36:36 COVID-19 997665961 U07.1 [id number] SERGIO MONTOYA [address] [facility] [place] [address] 10/24/2022 08:04:33 10/24/2022 08:34:19 Diverticulitis 486757208 K57.92 Health Concerns Section Related Observation LastModified by Organization Detai ls LastModified Time None Recorded Concern Status LastModified by Organization Details LastModified Time None Recorded Advance Directives Directive None Recorded Payers Encounter Date Sequence Insurance Name Policy Number Policy Grey Covered Member ID Grey Member ID Guarantor Name 09/15/2021 2 [facility] (MEDICAID REPLACEMENT - O) BRYON Ocampo [id number] Dave Ocampo 11/14/2021 2 [facility] (MEDICAID REPLACEMENT - HMO) BRYON Dusnasiru [id number] Dave Duslau 05/10/2022 2 [facility] (MEDICAID REPLACEMENT - HMO) BRYON Duslau [id number] Dave Parekhanislau 05/14/2022 2 [facility] (MEDICAID REPLACEMENT - HMO) BRYON Aguilera [place] [id number] Dave Aguilera [place] 10/24/2022 2 [facility] (MEDICAID REPLACEMENT - HMO) BRYON Duslau [id number] Dave Aguilera [place] 10/24/2022 1 [place] [id number] Dave Duslau [id number] 2 Dave Dusnasiru Notes Date Note Type Note Provider Name and Address Organization Details Recorded Time 05/10/2022 text/html CongestionReport ed bypatient.Notes:nasal congestion with post nasal drip x 1 days. Admit fever with chills. no chest pain or palpitation, no SOB or respiratory distress. Mando Orlando NP [address] [place], [address], [place] [employer] [facility] 05/10/2022 19:04:24 05/14/2022 text/html URI symptoms x 4 days, Covid positive. Unable to complete course of Paxlovid due to use of anticoagulation. Symptoms resolved yesterday. Employer requires repeat test to return to work, gets Covid pay.Has been isolating in the basement. Eh Hull, [address] [place], [address], PA - [facility] 05/14/2022 10:40:56 10/24/2022 text/html Abdominal PainRe ported bypatient.source of patient informationpatient; Patient arrived at Urgent Care ambulatory Location[facility] Quality:aching Severity:pain level 1/10;mild Duration:started: (yesteday) Onset/Timing:sudden Context:History of diverticulits since he was in his 20's. Did have surgery at one point due to a severe case of diverticulitis and had a colostomy for 8 weeks. He is in tune to when this is flairing and so he gets seen right away and usually does well with the medical management at home with antibiotics. The patient did call his PCP and they couldn't fit him in. Modifying Factors:Antibiotics Associated Symptoms:no fever; no chills; no vomiting; no constipation; no blood in the urine; no heartburn; no shortness of breath;nausea(nausea x 1 episode - nothing now.);diarrheaNotes:did not take any otc medication. Is going to go to work - not bad enough where he has to miss. Denies any history of crohns. He gets colonscopies regularly. No blood in the stool. No difficulty with urination. SERGIO MONTOYA [address] [place], [address], PA - [facility] 10/24/2022 08:37:27
--- OUTSIDE RECORDS SUMMARY | 2024-07-01 08:03 | XMS_ITS | Encounter Summary ---
[facility] [address] [place] [address] Care Team Providers Care [employer] Ax Consultant Name Role Phone Gabriel Berumen MD Primary Care Provider [phone] Encounter Details Date Type Department Care Team Description 11/20/2022 Energy Risk Management Analyst Report Medical Records [address] [place] [address] Leelee Saldaña MD Social History Tobacco Use [...] Exposure Response Date Recorded In the last 10 days, have brian u been in contact with someone who was confirmed or suspected to have Coronavirus/COVID-19? No / Unsure 11/18/2022 11:21 AM EDT documented as of this encounter Plan of Treatment Not on file documented as of this encounter Visit Diagnoses Not on filedocumented in this encounter Care Teams [employer] Consultant Relationship Specialty Start Date End Date Gabriel Berumen MD [address] [place] [phone] PCP - General Internal Medicine 07/15/21 documented as of this encounter
--- OUTSIDE RECORDS SUMMARY | 2024-07-01 08:03 | XMS_ITS | Encounter Summary ---
Author Organization [facility] Address [address] [place] [address] Care Team Providers Care Product Tester Name Role Phone Rosario Hernandez MD Primary Care Provider [phone] Gabriel Berumen MD Primary Care Provider [phone] Encounter Details Date Type Department Care Team Description 07/08/2018 Release of Information Medical Records [address] [place] [id number] Abstract, Provider Social History Tobacco Use Types [...] on filedocumented in this encounter Care Teams Product Tester Relationship Specialty Start Date End Date Rosario Hernandez MD [address] [place] [address] [phone] PCP - General Internal Medicine 09/14/20 07/14/21 Gabriel Berumen MD [address] [place] [address] [phone] PCP - General Internal Medicine 07/15/21 documented as of this encounter
--- OUTSIDE RECORDS SUMMARY | 2024-07-01 08:03 | XMS_ITS | Encounter Summary ---
Author Organization [facility] Address [address] [place] [address] Care Team Providers Care Steel Melter Name Role Phone Gabriel Berumen MD Primary Care Provider [phone] Reason for Visit * Reason Onset Date Comments prio auth status 05/17/2024 Encounter Details Date Type Department Care Team (Late st Contact Info) Description 05/17/2024 Telephone Adult Medicine [address] [phone] Gabriel Berumen MD [address] [place] [phone] prio auth status Social History Tobacco Use Types Packs/Day Years Used Date Smoking Tobacco: Some Days Cigarettes 0.5 37.2 Started: 1986 Smokeless Tobacco: Former Alcohol Use Standard Drinks/Week Comments No 0 (1 standard drink = 0.6 oz pur e alcohol) Dependent Care Answer Date Recorded Do you need help finding or paying for care for your loved ones. For example, director of early childhood education or elderly care for an older adult? [...] of this encounter Progress Notes * Leti aKtz MA - 05/17/2024 1:06 PM EST This is not a proper prior authorization message. Prior authorizations come from the pharmacy with the information of medication and insurance neededto do the prior authorization. Please do not forward mychart or pt calls or provider messages. Pts or staff can be told to contact their pharmacy about sending the prior authorization to the office with the insurance information needed . Thank you [facility] Leti [facility] Prior Authorization Ext [id number] * Nika Brand - 05/17/2024 9:16 AM EST Patient call requires triage: Symptoms patient is presenting: Patient would like care team to call and update him on the status of the we govy. Patient would also like to know if he should keep he's next appointment with C[facility] due to the appointment was regarding the medication We govy. How long has patient had these symptoms?: [...] traveled recently to another state outside of [place], [place], [place], [place], [place], [place], [place]? no o If yes, did you quarantine [...] gather 3rd alliance party insurance information Third Alliance Party Information: not applicable PCP: Gabriel Berumen MD Payor: KAIN ROBERTS (SMITHA) / Plan: [employer] [place] / Product Type: *No Product type* / documented in this encounter Plan of Treatment Upcoming Encounters Date Type Department Care Team (Late st Contact Info) Description 07/04/2024 10:00 AM EDT Office Visit Orthopedic Surgery - [place] [address] [phone] Adrien Kingston, DPM [address] [address] 08/09/2024 8:00 AM EDT Office Visit Adult Medicine [address] [phone] Alecia Ojeda PA [address] [place] [address] 08/17/2024 7:30 AM EDT Office Visit Adult Medicine [address] [phone] Alecia Ojeda PA [address] [place] [address] documented as of this encounter Visit Diagnoses Not on filedocumented in this encounter Additional Health Concerns Assessment Noted Time PHQ-9 Depression Total Score: 0 04/27/19 25 6:21 PM EST documented as of this encounter Care Teams Steel Melter Relationship Specialty Start Date End Date Gabriel Berumen MD [address] [place] [phone] PCP - General Internal Medicine 02/12/15 documented as of this encounter
--- OUTSIDE RECORDS SUMMARY | 2024-07-01 08:03 | XMS_ITS | Encounter Summary ---
Author Organization [facility] Address [address] [place] [address] Care Team Providers Care Data Integrity Consultant Name Role Phone Rosario Hernandez MD Primary Care Provider [phone] Gabriel Berumen MD Primary Care Provider [phone] Encounter Details Date Type Department Care Team Description 10/20/2018 Release of Information Medical Records [address] [place] [id number] Abstract, Provider Social History Tobacco Use Types [...] on filedocumented in this encounter Care Teams Data Integrity Consultant Relationship Specialty Start Date End Date Rosario Hernandez MD [address] [place] [address] [phone] PCP - General Internal Medicine 09/14/20 07/14/21 Gabriel Berumen MD [address] [place] [address] [phone] PCP - General Internal Medicine 07/15/21 documented as of this encounter
--- OUTSIDE RECORDS SUMMARY | 2024-07-01 08:03 | XMS_ITS | Encounter Summary ---
Author Organization [facility] Address [address] [place] [address] Care Team Providers Care Store Worker Name Role Phone Rosario Hernandez MD Primary Care Provider [phone] Gabriel Berumen MD Primary Care Provider [phone] Reason for Visit * Reason Onset Date Comments Diverticulitis 12/11/2020 Abdominal Pain 12/11/2020 Cramps 12/11/2020 Encounter Details Date Type Department Care Team Description 12/11/2020 Telephone Adult Medicine [address] [phone] Rosario Hernandez MD [address] [place] [address] [phone] Diverticulitis; Abdominal Pain; Cramps Social History Tobacco Use Types Packs/Day Years Used Date Smoking Tobacco: Every Day Cigarettes 0.5 20 Started: 1986 Smokeless Tobacco: Never Comments:vaping//started @ a 12 Alcohol Use Standard Drinks/Week Comments No [...] have Coronavirus / COVID-19? No / Unsure 12/12/2020 3:08 PM EDT documented as of this encounter Miscellaneous Notes * Telephone Encounter - Rosario Hernandez MD - 12/11/2020 9:54 AM EDT Ok for 15 minvisit * Telephone Encounter - Casimiro Fagan L.P.N. - 12/11/2020 9:16 AM EDT Patient C/O of diverticulitis Flare up LLQ Has some bloating He has some discomfort Small BM's Booked an appt with Dr. Hernandez on 12/12 at 3:30 It is only 15 minutes Please review and advise No other appt available * Telephone Encounter - Migue Chanel - 12/11/2020 8:37 AM EDT Symptoms patient is presenting: The patient states that he has been experiencing a flare up of his diverticulitis as he has been having some cramping and abdominal pain For ALL patients calling to schedule any appointment (routine, sick visit, follow up, consult, etc.) in the outpatient setting please ask the following questions: ?? Do you have fever of higher than 101, sore throat with difficulty swallowing or severe shortnessof breath? NO If YES to any of these above symptoms, send a message to triage and do not book. Red dot. If no, an audio or video visit should be booked. ?? Have you had close contact with someone with Coronavirus in the last 14 days? NO ?? Have you traveled abroad? NO ?? Have you traveled recently to another state outside of [place], [place], [place], [place], [place], [place], [place]? NO o If yes, did you quarantine for 14 days or have a negative covid test? NO If yes to any of the above, patient is not to be scheduled in office until after 14 day quarantine or negative covid test. If pain or injury related was it due to an accident at work or from a motor vehicle accident? NO If yes, gather 3rd democrat insurance information Date of accident/Injury: How long has patient had these symptoms?: Five days PCP: Rosario Hernandez Payor: [facility] [employer] / Plan: [facility] [employer] / Product Type: MEDICAID RISK documented in this encounter Plan of Treatment Not on file documented as of this encounter Visit Diagnoses Not on filedocumented in this encounter Care Teams Store Worker Relationship Specialty Start Date End Date Rosario Hernandez MD [address] [place] [address] [phone] PCP - General Internal Medicine 09/14/20 07/14/21 Gabriel Berumen MD [address] [place] [address] [phone] PCP - General Internal Medicine 07/15/21 documented as of this encounter
--- OUTSIDE RECORDS SUMMARY | 2024-07-01 08:03 | XMS_ITS | Clinical Summary ---
Author Organization [facility] Address [address] [place] [address] Care Team Providers Care Legal Recovery Specialist Name Role Phone Gabriel Berumen MD Primary Care Provider [phone] Allergies No known active allergies Medications Medication Sig Dispensed Refills Start Date End Date Status Aspirin Low Dose 81 MG EC tablet Take 81 mg by mouth daily. 0 12/16/2021 Active atorvastatin (LIPITOR) 80 MG tablet TAKE 1 TABLET BY MOUTH EVERY DAY AT BEDTIME 0 12/16/2021 Active Entresto 24-26 MG Tab 0 01/01/2022 Active glucose monitoring kit (FREESTYLE) monitoring kit To test sugra in AM prior to breakfast 1 Kit 0 01/02/2022 Active FreeStyle Lancets Misc To test sugra in AM prior to breakfast 100 Each 2 01/02/2022 Active Glucose Blood (FREESTYLE LITE) Strip To test sugra in AM prior to breakfast 200 Strip 2 01/02/2022 Active spironolactone (ALDACTONE) 25 MG tablet Take 1 Tablet by mouth daily. 0 07/07/2023 Active clotrimazole-betame thasone (Lotrisone) cream Apply bid to affected area 30 g 3 08/14/2023 08/08/2024 Active Dapagliflozin Propanediol 10 MG Tab Take by mouth daily. 0 Active metoprolol (TOPROL-XL) 100 MG 24 hr tablet Take 1 Tablet by mouth daily. 0 Active ciprofloxacin (CIPRO) 500 MG tablet Take 1 Tablet by mouth 2 times daily. 0 Active metronidazole (FLAGYL) 500 MG tablet Take 1 Tablet by mouth 3 times daily. 0 Active Active Problems Problem Noted Date ICD (implantable cardioverter-defibrilla tor) in place 08/14/2023 Overview: Low EF Cardiomyopathy 08/14/2023 Overview: Has ICD in place, EF 20-25% CAD (coronary artery disease) 01/02/2022 Overview: S/P STEMI, 100% LAD occlusion with stent placed Ventral hernia without obstruction or ga ngrene 04/29/2021 Severe obesity (BMI 35.0-35.9 with comor bidity) 07/13/2018 Diabetes mellitus type 2, uncomplicated 05/31/2018 Hx of diverticulitis of colon 09/16/2017 DVT (deep venous thrombosis) 06/02/2017 Overview: Left leg 06/07 unprovoked S/P partial colectomy 03/09/2017 Overview: Around 2007 at [facility] for diverticulitis Tobacco use disorder 05/05/2016 Diverticulosis Encounters Date Type Specialty Care Team Description 06/09/2024 Refill Orthopedic Adrien Kingston DPM E-prescribe Rx Request 04/16/2024 Refill Orthopedic Adrien Kingston DPM E-prescribe Rx Request from Last 3 Months Immunizations Name Administration Dates Next Due COVID-19 (Pfizer) 03/09/2022,09/05/2020,08/16/19 21 Flu Vaccine 3 Yrs> Im 02/15/2015 Influenza (> 6 Months) 01/07/2020,01/28/2017, Influenza Flu (PT Reported) 03/09/2022 Tdap 05/02/2015 Family History Medical History Relation Name Comments Diabetes Maternal Grandmother Diabetes Mother heart murmur Son Relation Name Status Comments [...] file Not on file Not on file Last Filed Vital Signs Vital Sign Reading Time Taken Comments Blood Pressure 108/64 12/15/2023 8:26 AM EDT Pulse 87 12/15/2023 8:26 AM EDT Temperature 36.6 ??C (97.8 ??F) 10/15/2023 8:03 AM ED T Respiratory Rate 16 10/15/2023 8:03 AM EDT Oxygen Saturation 98% 10/15/2023 8:03 AM EDT Inhaled Oxygen Concentration - - Weight 128.1 kg (282 lb 6.4 oz) 12/15/2023 8:26 AM EDT Height 177.8 cm (5' 10 ) 12/15/2023 8:26 AM EDT Body Mass Index 40.52 12/15/2023 8:26 AM EDT Plan of Treatment Health Maintenance Due Date Last Done Comments DIABETES: ANNUAL EYE EXAM 1994 DIABETES: ANNUAL FOOT EXAM 1994 DIABETES: ANNUAL URINE PROTE IN TEST (MICROALBUMIN) 1994 PNEUMOCOCCAL VACCINE FOR HIG H RISK PATIENTS (#1) 1995 BASELINE HEALTH EXAM 40-64 2016 DIABETES: BLOOD SUGAR CONTRO L TEST (HGBA1C) 11/13/2023 08/14/2023, 04/18/2022, 12/12/2020, Additional history exists Covid-19 Vaccine (2022-05 4 season) 2023 03/09/2022, 03/18/2021, 09/05/2020, Additional history exists INFLUENZA (#1) 2023 03/09/2022, 12/19, 03/08/2019, Additional history exists BMI CHECK/ADVISE 04/20/2024 10/15/2023, , 07/15/2021, Additional history exists DEPRESSION SCREENING/FOLLOWUP 04/20/2024 04/18/2022, 06/01/2020 SOCIAL NEEDS SCREENING 04/20/2024 04/29/2021, 2020 DIABETES/HEART DISEASE: ANTONIO PRESTON CHOLESTEROL (LDL) 08/13/2024 08/14/2023, 05/31/2018, 03/10/2017 DTAP/TDAP/TD (2 - Td or Tdap) 05/02/2025 05/02/2015 Care Teams Legal Recovery Specialist Relationship Specialty Start Date End Date Gabriel Berumen MD [address] [place] [phone] PCP - General Internal Medicine 07/15/21
--- OUTSIDE RECORDS SUMMARY | 2024-07-01 08:03 | XMS_ITS | Encounter Summary ---
Author Organization [facility] Address [address] [place] [address] Care Team Providers Care Tax Clerk Name Role Phone Rosario Hernandez MD Primary Care Provider [phone] Gabriel Berumen MD Primary Care Provider [phone] Encounter Details Date Type Department Care Team Description 03/07/2021 Telephone Adult Medicine [address] [phone] Mariah Campbell PA-C Social History Tobacco Use [...] have Coronavirus / COVID-19? No / Unsure 03/06/2021 2:59 PM EST documented as of this encounter Plan of Treatment Not on file documented as of this encounter Visit Diagnoses Not on filedocumented in this encounter Care Teams Tax Clerk Relationship Specialty Start Date End Date Rosario Hernandez MD [address] [place] [phone] PCP - General Internal Medicine 09/14/20 07/14/21 Gabriel Berumen MD [address] [place] [phone] PCP - General Internal Medicine 07/15/21 documented as of this encounter
--- OUTSIDE RECORDS SUMMARY | 2024-07-01 08:03 | XMS_ITS | Encounter Summary ---
Author Organization [facility] Address [address] [place] [address] Care Team Providers Care Jewelry Department Supervisor Name Role Phone Gabriel Berumen MD Primary Care Provider [phone] Encounter Details Date Type Department Care Team Description 08/06/2022 Telephone [facility] Medical [facility] [address] [facility] [address] [place] [phone] Marvel Norman, RAZA Social History Tobacco Use Types Packs/Day Years [...] In the last 10 days, have brian rothman been in contact with someone who was confirmed or suspected to have Coronavirus/COVID-19? No / Unsure 07/11/2022 9:02 AM EDT documented as of this encounter Miscellaneous Notes * Telephone Encounter - Ada Ramos - 08/06/2022 7:53 AM EDT I sunbmitted a pa to covermymeds and the pa was denied the pharmacy should have record of this documented in this encounter Plan of Treatment Not on file documented as of this encounter Visit Diagnoses Not on filedocumented in this encounter Care Teams Jewelry Department Supervisor Relationship Specialty Start Date End Date Gabriel Berumen MD [address] [place] [phone] PCP - General Internal Medicine 07/15/21 documented as of this encounter
--- NOTE | 2024-07-01 08:05 | MHC.OFFWIV ---
Intake Vital Signs 07/01/24 08:08 Weight 290 lb BP 130/80 Blood Pressure Location Rt brachial Position Sitting Pulse 79 Pulse Source Pulse Oximeter Pulse Oximetry (%) 94 Oxygen Delivery Method Room Air Intake Visit Reasons: EP flare up Diverticulitis Intake Note: Patient here for Diverticulitis flare up that started about 2 days ago. Patient Tobacco Use Status: Former Tobacco user Allergies No Known Allergies [NKA] Allergy (Verified 07/01/24 08:10) HPI HPI Comments History of Present Illness Details This is a 49-year-old male with a history of diverticulosis and recurrent diverticulitis who presented to the walk-in clinic complaining of left lower quadrant abdominal pain x2 days. Patient states his symptoms are similar to prior flare-ups of diverticulitis. He states his bowel movements have been normal although a little bit looser than usual. He reports some mild nausea but denies any vomiting. He denies any fevers or chills. He denies any melena or hematochezia. Patient is followed by sales broker and he has a follow-up scheduled in November of 2024. He denies any chest pain or shortness of breath. He denies any radiation of his pain. [facility] Social History Patient Tobacco Use Status: Former Tobacco user Review of Systems Const All systems reviewed & are unremarkable except as noted in HPI and below Reports no additional complaints Eyes Reports no additional complaints ENT Reports no additional complaints Card Reports no additional complaints Resp Reports no additional complaints GI Reports no additional complaints Reports no additional complaints Musc Reports no additional complaints Skin/Breast Reports system reviewed and no additional complaints, except as documented Neuro Reports no additional complaints Psych Reports no additional complaints Endo Reports no additional complaints Kyrie/Lymph Reports no additional complaints Aller/Immun Reports no additional complaints Physical Exam Const Other: Vital signs reviewed. Constitutional: Non-toxic appearing. No acute distress. Well-developed and well-nourished. HEENT: Normocephalic and atraumatic. Skin: Warm and dry. No rashes or lesions noted. Neck: Full and painless range of motion. No cervical lymphadenopathy. Cardio: Regular rate and rhythm. No murmurs, gallops, or rubs. No lower extremity edema. No JVD. Pulmonary: No respiratory distress. No accessory muscle usage. Clear to auscultation bilaterally without wheezing, crackles, or rhonchi. Gastrointestinal: There is mild tenderness to palpation of the left lower quadrant but otherwise abdomen is soft, nontender, and nondistended. Normoactive bowel sounds in all 4 quadrants. Genitourinary: No CVA tenderness. Musculoskeletal: Normal range of motion in joints throughout the body. No deformity or other signs of injury. Neuro: Alert and oriented x4. Cranial nerves 2-12 grossly intact. No focal deficits appreciated. Psych: Normal mood and affect. Assessment & Plan Assessment & Plan (1) Diverticulitis: Code(s): K57.92 - Diverticulitis of intestine, part unspecified, without perforation or abscess without bleeding Plan This is a 49-year-old male who presented to the walk-in clinic complaining of left lower quadrant abdominal pain consistent with his prior flare-ups of diverticulitis. He has mild tenderness to palpation of the left lower quadrant but his abdominal exam is otherwise benign. There is low suspicion for acute abdomen at this time given absence of fever/chills and peritoneal signs. Patient was given a prescription for p.o. amoxicillin/clavulanate 875/125 mg every 8 hours times 10 days for treatment of acute diverticulitis. He was instructed to proceed directly to the emergency room if he were to develop fever/chills, worsening pain, melena/hematochezia, or nausea/vomiting to the point where he is unable to tolerate his oral antibiotics. Patient verbalizes understanding and he is in agreement with the plan. Medications: New amoxicillin-pot clavulanate 875-125 mg 1 tab PO Q8H 10 days 30 tabs 0RF Coding Level of Care Code Est Pt Level 3 (36269) Diagnoses Diverticulitis K57.92
[2024-07-01 08:08] VITALS: BP 130/80; PULSE 79; O2SAT 94
== END 2024-07-01 08:26 | disposition home or self-care (01) ==
PROVIDERS: PCP Internal Medicine; Visit Provider Physician Assistant Medical
DX: K57.92 Diverticulitis of intestine, part unspecified, without perforation or abscess without bleeding (principal)

== ENCOUNTER → 2024-07-01 08:00 | Outpatient (BNVA) | payer BC, SELFPAY | PROVIDERS: PCP Internal Medicine; Visit Provider Physician Assistant Medical ==

== ENCOUNTER 2024-08-16 08:01 | Outpatient (AMB) | payer BC, SELFPAY ==
--- OUTSIDE RECORDS SUMMARY | 2024-08-16 08:05 | XMS_ITS ---
Author Organization [address] Address [address] [place] [address] Phone Care Team Providers Care Windshield Technician Name Role Phone Gabriel Berumen MD Primary Care Provider [phone] Transitional Care Management Status:Ongoing (Active) Start date:07/15/2024 Enrollment date:07/15/2024 Enrollment reason:Identified using hospital discharge data Case Team Name Relationship Phone Girish Hernandez LPN Care Manager(Responsible Staff) Continued Care and Services Coordination
--- OUTSIDE RECORDS SUMMARY | 2024-08-16 08:05 | XMS_ITS | Clinical Summary ---
Author Organization [facility] [address] [facility] Address [address] [place] [address] Phone Care Team Providers Care Search Engine Optimization Consultant Name Role Phone Gabriel Berumen MD Primary Care Provider [phone] Allergies No known active allergies Medications ciprofloxacin [...] complication, without long-term current use of insulin ([facility] V24, [facility] V28),Class 3 severe obesity without serious comorbidity with body mass index (BMI) of 40.0 to 44.9 in adult, unspecified obesity type Inject 0.25 mg under the skin every 7 (seven) days. 2 mL 1 5 Active triamcinolone (KENALOG) 0.025 % ointment Apply topically 2 (two) times a day. Apply on foot skin areas of rash 30 g 5 07/05/19 26 Active Active Problems Problem Noted Date Diagnosed Date Diverticulosis 02/23/2024 Cardiomyopathy ([facility] V24, [facility] V28) 2023 Overview (02/23/2024): Has ICD in place, EF 20-25% CAD (coronary artery disease) 01/02/2022 Overview (02/23/2024): S/P STEMI, 100% LAD occlusion with stent placed Ventral hernia without obstruction or gangrene 0 04/29/2021 Diabetes mellitus type 2, un complicated ([facility] V24, [facility] V28) 05/31/2018 DVT (deep venous thrombosis) ([facility] V24, [facility] V28) 06/02/2017 Overview (02/23/2024): Left leg 06/07 unprovoked Tobacco use disorder 05/05/2016 Resolved Problems Problem Noted Date Diagnosed Date Resolved Date ICD (implantable cardioverte r-defibrillator) in place 08/14/2023 02/23/2024 Overview (02/23/2024): Low EF Encounters Date Type Department Care Team Description 07/04/2024 10:00 AM EDT Office Visit Orthopedic Surgery [facility] [address] [address] Adrien Kingston, KATHYM Dermatitis (Primary Dx); Tinea pedis of both feet; Trench foot of left lower extremity, initial encounter 05/21/2024 1:15 PM EST Office Visit [facility] [place] [address] [place] [phone] Carri Acosta NP Balanitis (Primary Dx) 05/19/2024 Telephone Adult Medicine [address] [phone] Gabriel Berumen MD Personal Problem 05/18/2024 10:15 AM EST Office Visit Orthopedic Surgery - [place] [address] [phone] Adrien Kingston, DPM Dermatitis (Primary Dx); Dermatophytosis of nail; Tinea pedis of both feet from Last 3 Months Immunizations Name Administration Dates Next Due Influenza trivalent, 0.5mL, preservative free (Fluarix; FluLaval; Fluzone) ages 6mo and older (Afluria) 3 years and older 01/07/2020,01/28/2017 Influenza trivalent, with pr eservative (Fluzone; Afluria) 6mo and older 02/15/2015 Influenza, Unspecified 03/09/2022 [employer] SARS-CoV-2 COVID-19, mRNA, LNP-S, preservative free 03/09/2022 Tdap Tetanus diptheria acell ular pertussis (Boostrix; Adacel) 7yo and older 05/02/2015 Surgical History Surgery Date Site/Laterality Comments OTHER SURGICAL HISTORY roughly 2007 PROCEDURE: [place] COLECTOMY PRTL W/COLOST/ILEOST & MUCOFISTULA; COMMENT: [facility] APPENDECTOMY PROCEDURE: HISTORICAL APPENDECTOMY COLONOSCOPY May 2015 [...] ated fasting glucose DVT (deep venous thrombosis) ([facility] V24, [facility] V28) 06/02/2017 DX:DVT (deep venous thrombos is) ([facility]); COMMENT: Left leg 06/07 unprovoked Hx of diverticulitis of colon 09/16/2017 DX :Hx of diverticulitis of colon ICD (implantable cardioverter-defibrillator) in place 08/14/2023 DX:ICD (implantab le cardioverter-defibrillator) in place; COMMENT: Low EF Cardiomyopathy ([facility] V24, [facility] V28) 08/14/2023 DX:Cardiomyopathy ([facility]); COM MENT: Has ICD in placed CHF (congestive heart failur e) ([facility] V24, [facility] V28) DX:CHF (congestive heart fa ilure) ([facility]) AICD (automatic cardioverter/defibrillator) present DX:AICD (automatic cardioverter/defibrillator) present Diverticulosis DX:Diverticulosi s Family History Medical History Relation Name Comments Diabetes Maternal Grandmother Diabetes Mother Other: heart murmur Son Relation Name Status Comments Maternal Grandmother Mother Son Social History Tobacco Use Types Packs/Day Years Used Date Smoking Tobacco: Some Days Cigarettes 0.5 37.3 Started: 1987 Smokeless Tobacco: Former Tobacco Cessation:Ready to Q uit: Not Asked; Counseling Given: Not Answered Alcohol Use Standard Drinks/Week Comments No 0 (1 standard drink = 0.6 oz pur e alcohol) Dependent Care Answer Date Recorded Do you need help finding or paying for care for your loved ones. For example, child and family services worker or elderly care for an older adult? [...] - - Weight 132 kg (291 lb) 07/04/2024 9:50 AM EDT Height 177.8 cm (5' 10 ) 07/04/2024 9:50 AM EDT Body Mass Index 41.75 07/04/2024 9:50 AM EDT Plan of Treatment Health Maintenance [...] age to complete this topic Meningococcal B Vaccine Aged Out No l onger eligible based on patient's age to complete this topic RSV Immunization Patients Under 20 months Aged Out No longer eligible based on patient's age to complete this topic Varicella Vaccines Aged Out No longer eligible based on patient's age to complete this topic Procedures Procedure Name Priority Date/Time Associated Diagnosis Comments BASIC METABOLIC PANEL Routine 04/29/2024 8:21 AM EST Type 2 diabetes mellitus without complication, without long-term current use of insulin ([facility] V24, [facility] V28) HEMOGLOBIN A1C Routine 04/29/2024 8:21 AM EST Type 2 diabetes mellitus without complication, without long-term current use of insulin ([facility] V24, [facility] V28) LIPID PANEL WITH REFLEX TO DIRECT LDL Routine 04/29/2024 8:21 AM EST Cardiomyopathy, unspecified type ([facility] V24, [facility] V28) from Last 3 Months or Most Recently Relevant to Health Maintenance Results * Lipid panel with reflex to direct LDL (04/29/2024 8:21 AM EST) Cholesterol 120 0 - 200 mg/dL LAB CHEMISTRY METHOD 04/29/2024 10:18 AM [facility] Triglycerides 113 0 - 150 mg/dL LAB CHEMISTRY METHOD 04/29/2024 10:18 AM [facility] HDL 42 >=40 mg/dL LAB CHEMISTRY METHOD 04/29/2024 10:18 AM [facility] LDL Calculated 55 0 - 100 mg/dL LAB CHEMISTRY METHOD 04/29/2024 10:18 AM EST [facility] VLDL Cholesterol Jimbo 22.6 mg/dL LAB CHEMISTRY METHOD 04/29/2024 10:18 AM [facility] Non HDL Chol. (LDL+VLDL) 78 <145 mg/dL LAB CHEMISTRY METHOD 04/29/2024 10:18 AM [facility] Chol/HDL Ratio 2.9 0.0 - 4.4 LAB CHEMISTRY METHOD 04/29/2024 10:18 AM EST [facility] Blood Venous blood specimen / Unknown Venipuncture / Unknown 04/29/2024 8:21 AM EST 04/29/2024 8:21 AM EST Alecia HILL LAB BLOOD ORDERABLES Fi nal Result [facility] [address] [place] [address], * (ABNORMAL) Hemoglobin A1c (04/29/2024 8:21 AM EST) Pathologist [facility] Hemoglobin A1C 7.3(H) <6.5 % LAB CHEMISTRY METHOD 04/29/2024 12:50 PM [facility] Mean Bld Glu Estim. 163 mg/dL LAB CHEMISTRY METHOD 04/29/2024 12:50 PM [facility] Blood Venous blood specimen / Unknown Venipuncture / Unknown 04/29/2024 8:21 AM EST 04/29/2024 8:21 AM EST Alecia [facility] LAB BLOOD ORDERABLES Fi nal Result [facility] [address] [place] [address], [place] [phone] * (ABNORMAL) Basic metabolic panel (04/29/2024 8:21 AM EST) Sodium 135 133 - 145 mmol/L LAB CHEMISTRY METHOD 04/29/2024 10:18 AM [facility] Potassium 4.5 3.5 - 5.5 mmol/L LAB CHEMISTRY METHOD 04/29/2024 10:18 AM [facility] Chloride 106 96 - 110 mmol/L LAB CHEMISTRY METHOD 04/29/2024 10:18 AM [facility] CO2 25 21 - 32 mmol/L LAB CHEMISTRY METHOD 04/29/2024 10:18 AM [facility] Anion Gap 4 3 - 11 LAB CHEMISTRY METHOD 04/29/2024 10:18 AM [facility] Glucose 136(H) 70 - 100 mg/dL LAB CHEMISTRY METHOD 04/29/2024 10:18 AM [facility] BUN 18 5 - 25 mg/dL LAB CHEMISTRY METHOD 04/29/2024 10:18 AM [facility] Creatinine 1.04 0.70 - 1.30 mg/dL LAB CHEMISTRY METHOD 04/29/2024 10:18 AM [facility] eGFR 89 >=60 mL/min/1. 73m2 LAB CHEMISTRY METHOD 04/29/2024 10:18 AM [facility] Comment:Calculation based on the??Chronic Kidney Disease Epidemiology Collaboration (CKD-EPI) equation refit??without adjustment for race. BUN/Creatinine Ratio 17.3 LAB CHEMISTRY METHOD 04/29/2024 10:18 AM [facility] Calcium 8.9 8.5 - 10.5 mg/dL LAB CHEMISTRY METHOD 04/29/2024 10:18 AM EST [facility] Blood Venous blood specimen / Unknown Venipuncture / Unknown 04/29/2024 8:21 AM EST 04/29/2024 8:21 AM EST us Alecia HILL LAB BLOOD ORDERABLES Fi nal Result [facility] ([facility] [address] [place] [address], from Last 3 Months or Most Recently Relevant to Health Maintenance Insurance [facility]) Care Teams Search Engine Optimization Consultant Relationship Specialty Start Date End Date Gabriel Berumen MD [address] [place] [address] [phone] PCP - General Internal Medicine 02/12/15
--- OUTSIDE RECORDS SUMMARY | 2024-08-16 08:05 | XMS_ITS | Data Portability ---
Author Organization [facility], [address] Address [address] [place] [address] Care Team Providers Care Care Professionals Name Role Phone LAURI THOMPSON Primary Care Provider Assessment Encounter Date Assessment Date Assessment LastModified [...] specimen 2022 023 yaima ne1 _[facility], [address] [place] [address], [phone], 3 10:32:09 rapid strep group A, throat 2022 023 irais _[facility], [address] [place] [address], [address], 3 19:00:00 rapid flu (A+B) 2022 023 irais _[facility], [address] [place] [address], [address], 3 19:00:00 rapid SARS CoV 2 Ag, QL IA, respiratory specimen 2022 023 irais [facility], [address] [place], [address], 3 19:00:00 Referral None recorded. Procedures None recorded. Surgeries None recorded. Imaging None recorded. Medication Orders ciprofloxac in 500 mg tablet 2022 023 [id number], [address] [place], [address], 3 08:33:32 metronidazo le 500 mg tablet 2022 023 [id number], [address] [place], [address], 3 08:33:32 Paxlovid 300 mg (150 mg x 2)-100 mg tablets in a dose pack 2022 023 [id number], [address] [place], [address], 3 08:12:09 Patient TargetsNo targets recorded. Patient Instructions Encounter Date Encounter Id Patient Instructions Last Modified By Organization Details Last Modified Time 05/10/2022 [id number] Fever: Care Instructions Not available 05/10/2022 19:00:00 [...] wear a mask. For travel guidance, see [facility]? s Travel webpage. Do not travel. Stay [...] masking (see below). For travel guidance, see [facility]? s Travel webpage. Not available 05/10/2022 19:02:23 [...] care for yourself at home? Take an suqd-ous-ikbizuk pain medicine. Avoid Ibuprofen, Aleve and Aspirin if . If the doctor prescribed antibiotics, take them as directed. Do not stop taking them just because you feel better. You need to take the full course of antibiotics. Be careful when taking bing-lax-izwwkqb cold or influenza (flu) medicines and Tylenol [...] . [email or web address] Not available 05/10/2022 19:02:40 05/14/2022 [id number] coronavirus (covid-19): care instructions Not available 05/14/2022 10:32:09 Complete your 5t h day of isolation at home with a mask. Starting tomorrow, you can complete 5 days of masking in public. Repeat a rapid Covid test in 2 days (Ok to purchase from your local pharmacy) Not available 05/14/2022 10:33:25 10/24/2022 [id number] diverticulitis: care instructions [email or web address] Not available 10/24/2022 08:33:27 With your histor [...] questions or concerns. Thank you for using [employer]. [email or web address] Not available 10/24/2022 08:25:03 Reason for Referral None Reported. Results Created Date Observation Date Name Description Value Unit Range Abnormal Flag Note LastModifiedBy Organization Detail LastModifiedTime 05/10/19 23 05/10/2022 rapid SARS CoV 2 Ag, QL IA, respi rator y speci men Unknown Analyte Normal =Negat talia Not Available [address] [place] [address], [address], 05/10/2022 18:08:25 05/10/19 23 05/10/2022 rapid SARS CoV 2 Ag, QL IA, respi rator y speci men Unknown Analyte positi ve Not Available [address] [place] [address], [place], [address], 05/10/2022 18:08:25 05/10/19 23 05/10/2022 rapid strep group A, throa t Unknown Analyte Normal = Negati ve Not Available [address] [place] [address], [place], [address], 05/10/2022 18:08:36 05/10/19 23 05/10/2022 rapid strep group A, throa t Unknown Analyte negati ve Not Available [address] [place] [address], [place], [address], 05/10/2022 18:08:36 05/10/19 23 05/10/2022 rapid flu (A+B) Unknown Analyte Normal = Negati ve Not Available [address] [place] [address], [place], [address], 05/10/2022 18:08:30 05/10/19 23 05/10/2022 rapid flu (A+B) Unknown Analyte Normal = Negati ve Not Available [address] [place] [address], [place], [address], 05/10/2022 18:08:30 05/10/19 23 05/10/2022 rapid flu (A+B) Unknown Analyte negati ve Not Available [address] [place] [address], [place], [address], 05/10/2022 18:08:30 05/10/19 23 05/10/2022 rapid flu (A+B) Unknown Analyte negati ve Not Available _[address], [place], [address], 05/10/2022 18:08:30 05/14/1905/14/2022 rapid SARS CoV 2 Ag, QL IA, respi rator y speci men Unknown Analyte positi ve Not Available _[address] [place], [address], 05/14/2022 09:14:33 05/14/19 23 05/14/2022 rapid SARS CoV 2 Ag, QL IA, respi rator y speci men Unknown Analyte Normal =Negat talia Not Available [address], [place], [address], 05/14/2022 09:14:33 Result Notes None recorded. Problems Name Problem SNOMED Code Status Onset Date Resolution Date Notes Provider Name and Address Organization Details Recorded Time Diverticulitis 831528312 Active Dorita bush PA - [facility] 3 08:12:48 Myocardial infarction 41422481 Active 2021 PATRICK bush PA - [facility] 3 18:05:36 Prediabetes 465413517 Active 2022 PATRICK bush PA - [facility] [...] Updated DateTime 3 177.8 cm 34.4 kg/m2 940492. 17 g 16 /min 1 78 /min 98 [degF] 94 % 94 % 102 mm[Hg] 70 mm[Hg] Dorita Patel [facility] 3 08:15:02 Date Recorded Body height Body mass index (BMI) Body weight Body temperature Oxygen saturation Oxygen saturation in Arterial blood by Pulse oximetry Heart rate Respiratory rate Systolic blood pressure Diastolic blood pressure Provider Name and Address Organization Details Last Updated DateTime 3 177.8 cm 34.4 kg/m2 345832. 17 g 96.8 [degF] 97 % 97 % 84 /min 18 /min 102 mm[Hg] 68 mm[Hg] PATRICK MARTINEZ [facility] 3 18:08:05 Date Recorded Body height Body mass index (BMI) Body weight Respiratory rate Heart rate Oxygen saturation Oxygen saturation in Arterial blood by Pulse oximetry Pain severity - 0-10 verbal numeric rating [Score] - Reported Body temperature Systolic blood pressure Diastolic blood pressure Provider Name and Address Organization Details Last Updated DateTime 3 177.8 cm 34.4 kg/m2 148225. 17 g 18 /min 84 /min 98 [...] SNOMED-CT Code Diagnosis ICD10 Code Diagnosis Note [id number] [address] [place] [address] 08/12/2020 08:18:03 08/12/2020 09:36:57 [id number] [address] [facility] [place] [address] 12/23/2019 17:12:40 12/23/2019 18:34:32 [id number] [address] [facility] [place] [address] 08/24/2018 18:51:04 08/24/2018 19:45:33 [id number] [address] [facility] [place] [address] 05/01/2019 16:26:41 05/01/2019 17:08:28 [id number] [address] [facility] [place] [address] 09/21/2018 15:08:23 09/21/2018 16:27:01 [id number] [address] [facility] [place] [address] 01/23/2020 16:10:27 01/23/2020 18:09:42 [id number] [address] [place] [address] 02/12/2021 15:34:54 02/12/2021 17:03:42 [id number] [address] [place] [address] 06/21/2021 08:02:31 06/21/2021 08:48:54 [id number] [address] [place] [address] 04/09/2021 08:06:00 04/09/2021 09:42:12 [id number] [address] [facility] [place] [address] 03/09/2018 09:14:23 03/09/2018 09:52:54 [id number] [address] [facility] [place] [address] 11/18/2019 08:16:47 11/18/2019 09:22:35 [id number] [address] [facility] [place] [address] 09/15/2021 09:16:42 09/15/2021 09:59:20 [id number] [address] [place] [address] 11/14/2021 11:42:50 11/14/2021 13:00:39 [id number] [address] [facility] [place] [address] 02/11/2018 17:34:47 02/11/2018 19:16:03 [id number] Mando Orlando [employer] [address] [facility] [place] [address] 05/10/2022 17:27:25 05/10/2022 19:10:52 Exposure to SARS-CoV-2 354865192 Z20.822 COVID-19 849961183 U07.1 Patient to follow up with his cardiologi st regarding paxlovid use . patient agree with plan. Sore throat 025480913 J0 2.9 [id number] Eh Hull [place] [address] [facility] [place] [address] 05/14/2022 08:16:47 05/14/2022 10:36:36 COVID-19 [id number] U07.1 [id number] SERGIO MONTOYA [address] [facility] [place] [address] 10/24/2022 08:04:33 10/24/2022 08:34:19 Diverticulitis 685451300 K57.92 Health Concerns Section Related Observation LastModified by Organization Detai ls LastModified Time None Recorded Concern Status LastModified by Organization Details LastModified Time None Recorded Advance Directives Directive None Recorded Payers Encounter Date Sequence Insurance Name Policy Number Policy Grey Covered Member ID Grey Member ID Guarantor Name 09/15/2021 2 [facility] (MEDICAID REPLACEMENT - O) BRYON Ocampo [id number] Dave Ocampo 11/14/2021 2 [facility] (MEDICAID REPLACEMENT - HMO) BRYON Dusnasiru [id number] Dave Duslau 05/10/2022 2 [facility] (MEDICAID REPLACEMENT - HMO) BRYON Duslau [id number] Dave Parekhanislau 05/14/2022 2 [facility] (MEDICAID REPLACEMENT - HMO) BRYON Aguilera [place] [id number] Dave Aguilera [place] 10/24/2022 2 [facility] (MEDICAID REPLACEMENT - HMO) BRYON Duslau [id number] Dave Aguilera [place] 10/24/2022 1 [place] [id number] Dave Duslau [id number] 2 Dave Dusnasiru Notes Date Note Type Note Provider Name and Address Organization Details Recorded Time 05/10/2022 text/html CongestionReport ed bypatient.Notes:nasal congestion with post nasal drip x 1 days. Admit fever with chills. no chest pain or palpitation, no SOB or respiratory distress. Mando Orlando NP [address] [place], [address], PA [employer] [facility] 05/10/2022 19:04:24 05/14/2022 text/html URI symptoms x 4 days, Covid positive. Unable to complete course of Paxlovid due to use of anticoagulation. Symptoms resolved yesterday. Employer requires repeat test to return to work, gets Covid pay.Has been isolating in the basement. Eh Hull, [address] [place], [address], PA - [facility] 05/14/2022 10:40:56 10/24/2022 text/html Abdominal PainRe ported bypatient.source of patient informationpatient; Patient arrived at Urgent Care ambulatory Location:[facility] Quality:aching Severity:pain level 1/10;mild Duration:started: (yesteday) Onset/Timing:sudden [...] SERGIO MONTOYA [address] [place], [address], PA - [facility] 10/24/2022 08:37:27
--- NOTE | 2024-08-16 08:16 | AM.OFFWIN_ITS ---
Intake Vital Signs 08/16/24 08:18 Height 5 ft 10 in Weight 290 lb BMI 41.6 BP 124/80 Blood Pressure Location Rt brachial Position Sitting Pulse 96 Pulse Source Pulse Oximeter Temp 98.5 F Temp Source Oral Pulse Oximetry (%) 94 Oxygen Delivery Method Room Air Intake Visit Reasons: EP Covid+, work note (outside)[phone] Intake Note: Patient here because he tested positive on at home covid test and needs a work note and to confirm test. Patient Tobacco Use Status: Former Tobacco user Allergies No Known Allergies [NKA] Allergy (Verified 08/16/24 08:17) Do you need a note to return to daycare/school/sports/work: Yes HPI HPI Comments History of Present Illness Details History - The patient is a 49-year-old male pres enting with COVID-19. - He has experienced primary symptoms fo r 4 days, including chest tightness, shortness of breath, cough, and chest congestion, associated with positive COVID test at home overnight. - He has a history of heart issues , wagner s a defibrillator and has reported sinus pain. Denies ear pain or fevers. - has been using Vicks and trying to yris ntain hydration Physical Exam General: Cooperative, healthy appearing, comfortable and no acute distress Orientation/consciousness: Patient oriented x3 Limitations: No limitations Head: Normal to inspection Ears: Hearing grossly normal bilaterally, external ears normal and TM's normal bilaterally Nose: Normal external nose present, Normal nares present and No nasal discharge present Face and sinus: Normal facial exam and Sinuses tender Mouth: Normal oral and palatal mucosa present and moist mucous membranes Throat: Yes tonsils normal, Yes uvula midline. Posterior oropharynx erythema Eyes: Appearance normal, both eyes and all related structures Neck: Normal visual inspection Respiratory: Clear but dim to auscultation bilaterally. Normal respiratory effort, able to speak in complete sentences, Actively coughing, no respiratory distress, not tachypneic, no tripod positioning and no use of accessory muscles Cardiovascular: Regular rate and rhythm. Normal S1 and S2. Skin: No rashes or lesions noted Neuro: Patient oriented x3 Extremities: Normal to inspection and Yes no clubbing, cyanosis or edema PFSH Social History Patient Tobacco Use Status: Former Tobacco user Review of Systems Const All systems reviewed & are unremarkable except as noted in HPI and below Assessment & Plan Assessment & Plan (1) Lower respiratory infection (e.g., bronchitis, pneumonia, pneumonitis, pulmonitis): Code(s): J22 - Unspecified acute lower respiratory infection Plan: O2 94%, otherwise VSS, pt well appearing and PE remarkable for dim lung sounds. A chest x-ray is ordered to rule out pneumonia, highlighted by symptoms and ongoing community-risk factors. The patient presents with a confirmed COVID-19 infection exhibiting respiratory symptoms including wheezing, chest congestion, and discomfort. Tests confirmed positivity despite initial negative results. Dehydration is suspected from tachycardia and reduced oxygen levels; thus, increased fluid intake is advised. COVID-19 history warrants immediate imaging to guide future treatment steps. There is emphasis on symptom control, hydration, and awaiting x-ray results, ensuring ongoing monitoring for evolving symptoms. Patient was informed and verbally consented to the use of an ambient scribe for clinic note documentation during this visit Orders: Orders SARS-CoV2/FLU/RSV Today R09.89 - Other specified symptoms and signs involving the circulatory and respiratory systems XR chest 2V Today R05.9 - Cough, unspecified Coding Level of Care Code New Pt Level 4 (74030) Diagnoses Lower respiratory infection (e.g., bronchitis, pneumonia, pneumonitis, pulmonitis) J22
[2024-08-16 08:18] VITALS: BP 124/80; PULSE 96; TEMP 36.9; O2SAT 94; BMI 41.6
== END 2024-08-16 08:35 | disposition home or self-care (01) ==
PROVIDERS: PCP Internal Medicine; Visit Provider Physician Assistant
DX: J22 Unspecified acute lower respiratory infection (principal)

== ENCOUNTER 2024-08-16 08:01 | Outpatient (REF) | payer BC, SELFPAY ==
--- OUTSIDE RECORDS SUMMARY | 2024-08-16 08:45 | XMS_ITS | Encounter Summary ---
Author Organization [facility] Address [address] [place] [address] Care Team Providers Care Bottle Packer Name Role Phone Rosario Hernandez MD Primary Care Provider [phone] Gabriel Berumen MD Primary Care Provider [phone] Reason for Visit * Reason Onset Date Comments medication problems 08/12/2017 Encounter Details Date Type Department Care Team Description 08/12/2017 Telephone Adult Medicine [address] [phone] Gabriel Berumen MD [address] [place] [address] [phone] medication problems Social History Tobacco Use Types [...] Who is patients PCP?: Gabriel Berumen Payor: [facility] PUBLIC [employer] / Plan: CASTT $0 DEEPA [id number] / Product Type: MEDICAID [id number] documented in this encounter Plan of Treatment Not on file documented as of this encounter Visit Diagnoses Not on filedocumented in this encounter Care Teams Bottle Packer Relationship Specialty Start Date End Date Rosario Hernandez MD [address] [place] [id number] PCP - General Internal Medicine 09/14/20 07/14/21 Gabriel Berumen MD [address] [place] [phone] PCP - General Internal Medicine 07/15/21 documented as of this encounter
--- OUTSIDE RECORDS SUMMARY | 2024-08-16 08:45 | XMS_ITS | Encounter Summary ---
Author Organization [facility] Address [address] [place] [address] Care Team Providers Care Fisher Clam Name Role Phone Gabriel Berumen MD Primary Care Provider [phone] Encounter Details Date Type Department Care Team Description 12/16/2021 Hospital Medical Records [address] [place] [address] Abstract, Provider Social History Tobacco Use Types [...] on filedocumented in this encounter Care Teams Fisher Clam Relationship Specialty Start Date End Date Gabriel Berumen MD [address] [place] [address] [phone] PCP - General Internal Medicine 07/15/21 documented as of this encounter
--- OUTSIDE RECORDS SUMMARY | 2024-08-16 08:45 | XMS_ITS | Encounter Summary ---
Author Organization [employer] [facility] Address [address] [place] [address] Care Team Providers Care Supervisor Agency Appointments Name Role Phone Gabriel Berumen MD Primary Care Provider [phone] Encounter Details Date Type Department Care Team Description 01/06/2023 Orders Only Medical Records [address] [place] [address] Abstract, Provider Social History Tobacco Use Types [...] on filedocumented in this encounter Care Teams Supervisor Agency Appointments Relationship Specialty Start Date End Date Gabriel Berumen MD [address] [place] [address] PCP - General Internal Medicine 07/15/21 documented as of this encounter
--- OUTSIDE RECORDS SUMMARY | 2024-08-16 08:45 | XMS_ITS | Encounter Summary ---
Author Organization [facility] Address [address] [place] [address] Care Team Providers Care Recruitment Director Name Role Phone Rosario Hernandez MD Primary Care Provider Gabriel Berumen MD Primary Care Provider [phone] Reason for Visit * Reason Onset Date Comments REFERRAL 10/26/2017 Dermatology Encounter Details Date Type Department Care Team Description 10/26/2017 Telephone Dermatology - [address] [phone] Gabriel Berumen MD [address] [place] [address] [phone] REFERRAL (Dermatology) Social History Tobacco Use Types [...] on filedocumented in this encounter Care Teams Recruitment Director Relationship Specialty Start Date End Date Rosario Hernandez MD [address] [place] [address] [phone] PCP - General Internal Medicine 09/14/20 07/14/21 Gabriel Berumen MD [address] [place] [address] [phone] PCP - General Internal Medicine 07/15/21 documented as of this encounter
--- OUTSIDE RECORDS SUMMARY | 2024-08-16 08:45 | XMS_ITS | Encounter Summary ---
Author Organization [facility] Address [address] [place] [address] Care Team Providers Care Cook Specialty Name Role Phone Rosario Hernandez MD Primary Care Provider [phone] Gabriel Berumen MD Primary Care Provider [phone] Reason for Visit * Reason Onset Date Comments Provider Call Back 04/22/2017 Encounter Details Date Type Department Care Team Description 04/22/2017 Telephone Gastroenterology - [address] [address] Dell Kaur MD Provider Call Back Social [...] on filedocumented in this encounter Care Teams Cook Specialty Relationship Specialty Start Date End Date Rosario Hernandez MD [address] [place] [phone] PCP - General Internal Medicine 09/14/20 07/14/21 Gabriel Berumen MD [address] [place] [id number] PCP - General Internal Medicine 07/15/21 documented as of this encounter
--- OUTSIDE RECORDS SUMMARY | 2024-08-16 08:45 | XMS_ITS | Clinical Summary ---
Author Organization [facility] [address] [facility] Address [address] [place] [address] Phone Care Team Providers Care Green Energy Marketing Analyst Name Role Phone Gabriel Berumen MD Primary Care Provider [phone] Allergies No known active allergies Medications ciprofloxacin [...] complication, without long-term current use of insulin ([facility] V24, [facility] V28),Class 3 severe obesity without serious comorbidity [...] Noted Date Diagnosed Date Diverticulosis 02/23/2024 Cardiomyopathy ([facility] V24, [facility] V28) 2023 Overview (02/23/2024): Has ICD in place, EF 20-25% CAD (coronary artery disease) 01/02/2022 Overview (02/23/2024): S/P STEMI, 100% LAD occlusion with stent placed Ventral hernia without obstruction or gangrene 0 04/29/2021 Diabetes mellitus type 2, un complicated ([facility] V24, [facility] V28) 05/31/2018 DVT (deep venous thrombosis) ([facility] V24, [facility] V28) 06/02/2017 Overview (02/23/2024): Left leg 06/07 unprovoked Tobacco use disorder 05/05/2016 Resolved Problems Problem Noted Date Diagnosed Date Resolved Date ICD (implantable cardioverte r-defibrillator) in place 08/14/2023 02/23/2024 Overview (02/23/2024): Low EF Encounters Date Type Department Care Team Description 07/04/2024 10:00 AM EDT Office Visit Orthopedic Surgery [facility] [address] [address] Adrien Kingston, KATHYM Dermatitis (Primary Dx); Tinea pedis of both feet; Trench foot of left lower extremity, initial encounter 05/21/2024 1:15 PM EST Office Visit [facility] [place] [address] [place] [phone] Carri Acosta NP Balanitis (Primary Dx) 05/19/2024 Telephone Adult Medicine [address] [phone] Gabriel Berumen MD Personal Problem 05/18/2024 10:15 AM EST Office Visit Orthopedic Surgery [place] [address] [phone] Adrien Kingston, DPM Dermatitis (Primary Dx); Dermatophytosis of nail; Tinea pedis of both feet from Last 3 Months Immunizations Name Administration Dates Next Due Influenza trivalent, 0.5mL, preservative free (Fluarix; FluLaval; Fluzone) ages 6mo and older (Afluria) 3 years and older 01/07/2020,01/28/2017 Influenza trivalent, with pr eservative (Fluzone; Afluria) 6mo and older 02/15/2015 Influenza, Unspecified 03/09/2022 reportbrain SARS-CoV-2 COVID-19, mRNA, LNP-S, preservative free 03/09/2022 Tdap Tetanus diptheria acell ular pertussis (Boostrix; Adacel) 7yo and older 05/02/2015 Surgical History Surgery Date Site/Laterality Comments OTHER SURGICAL HISTORY roughly 2007 PROCEDURE: UT COLECTOMY PRTL W/COLOST/ILEOST & MUCOFISTULA; COMMENT: [facility] APPENDECTOMY PROCEDURE: HISTORICAL APPENDECTOMY COLONOSCOPY May [...] ated fasting glucose DVT (deep venous thrombosis) ([facility], [facility] V28) 06/02/2017 DX:DVT (deep venous thrombos is) ([facility]); COMMENT: Left leg 06/07 unprovoked Hx of diverticulitis of colon 09/16/2017 DX :Hx of diverticulitis of colon ICD (implantable cardioverter-defibrillator) in place 08/14/2023 DX:ICD (implantab le cardioverter-defibrillator) in place; COMMENT: Low EF Cardiomyopathy ([facility] V24, [facility] V28) 08/14/2023 DX:Cardiomyopathy ([facility]); COM MENT: Has ICD in placed CHF (congestive heart failur e) ([facility] V24, [facility] V28) DX:CHF (congestive heart fa ilure) ([facility]) AICD (automatic cardioverter/defibrillator) present DX:AICD (automatic cardioverter/defibrillator) [...] for your loved ones. For example, child health associate or elderly care for an older adult? [...] complication, without long-term current use of insulin ([facility] V24, [facility] V28) HEMOGLOBIN A1C Routine 04/29/2024 8:21 AM EST Type 2 diabetes mellitus without complication, without long-term current use of insulin ([facility] V24, [facility] V28) LIPID PANEL WITH REFLEX TO DIRECT LDL Routine 04/29/2024 8:21 AM EST Cardiomyopathy, unspecified type ([facility] V24, [facility] V28) from Last 3 Months or Most Recently Relevant to Health Maintenance Results * Lipid panel with reflex to direct LDL (04/29/2024 8:21 AM EST) Cholesterol 120 0 - 200 mg/dL LAB CHEMISTRY METHOD 04/29/2024 10:18 AM [facility] Triglycerides 113 0 - 150 mg/dL LAB CHEMISTRY METHOD 04/29/2024 10:18 AM [facility] HDL 42 >=40 mg/dL LAB CHEMISTRY METHOD 04/29/2024 10:18 AM [facility] LDL Calculated 55 0 - 100 mg/dL LAB CHEMISTRY METHOD 04/29/2024 10:[address] [facility] VLDL Cholesterol Jimbo 22.6 mg/dL LAB CHEMISTRY METHOD 04/29/2024 10:18 AM [facility] Non HDL Chol. (LDL+VLDL) 78 <145 mg/dL LAB CHEMISTRY METHOD 04/29/2024 10:18 AM [facility] Chol/HDL Ratio 2.9 0.0 - 4.4 LAB CHEMISTRY METHOD 04/29/2024 10:[address] [facility] Blood Venous blood specimen / Unknown Venipuncture / Unknown 04/29/2024 8:21 AM EST 04/29/2024 8:21 AM EST [facility]cia [facility] LAB BLOOD ORDERABLES Fi nal Result [facility] [address] [place] [address], * (ABNORMAL) Hemoglobin A1c (04/29/2024 8:21 AM EST) Pathologist [facility] Hemoglobin A1C 7.3(H) <6.5 % LAB CHEMISTRY METHOD 04/29/2024 12:50 PM [facility] Mean Bld Glu Estim. 163 mg/dL LAB CHEMISTRY METHOD 04/29/2024 12:50 PM [facility] Blood Venous blood specimen / Unknown Venipuncture / Unknown 04/29/2024 8:21 AM EST 04/29/2024 8:21 AM EST [facility] LAB BLOOD ORDERABLES Fi nal Result [facility] [address] [place] [address], [place] [phone] * (ABNORMAL) Basic metabolic panel (04/29/2024 8:21 AM EST) Sodium 135 133 - 145 mmol/L LAB CHEMISTRY METHOD 04/29/2024 10:18 AM [facility] Potassium 4.5 3.5 - 5.5 mmol/L LAB CHEMISTRY METHOD 04/29/2024 10:18 AM [facility] Chloride 106 96 - 110 mmol/L LAB CHEMISTRY METHOD 04/29/2024 10:18 AM [facility] CO2 25 21 - 32 mmol/L LAB CHEMISTRY METHOD 04/29/2024 10:18 AM [facility] Anion Gap 4 3 - 11 LAB CHEMISTRY METHOD 04/29/2024 10:18 AM [facility] Glucose 136(H) 70 - 100 mg/dL LAB CHEMISTRY METHOD 04/29/2024 10:18 AM [facility] BUN 18 5 - 25 mg/dL LAB CHEMISTRY METHOD 04/29/2024 10:18 AM [facility] Creatinine 1.04 0.70 - 1.30 mg/dL LAB CHEMISTRY METHOD 04/29/2024 10:18 AM [facility] eGFR 89 >=60 mL/min/1. 73m2 LAB CHEMISTRY METHOD 04/29/2024 10:18 AM [facility] Comment:Calculation based on the??Chronic Kidney Disease Epidemiology Collaboration (CKD-EPI) equation refit??without adjustment for race. BUN/Creatinine Ratio 17.3 LAB CHEMISTRY METHOD 04/29/2024 10:18 AM [facility] Calcium 8.9 8.5 - 10.5 mg/dL LAB CHEMISTRY METHOD 04/29/2024 10:18 AM EST [facility] Blood Venous blood specimen / Unknown Venipuncture / Unknown 04/29/2024 8:21 AM EST 04/29/2024 8:21 AM EST us Alecia HILL LAB BLOOD ORDERABLES Fi nal Result [facility] [address] [place] [address], from Last 3 Months or Most Recently Relevant to Health Maintenance Insurance [facility]) Care Teams Green Energy Marketing Analyst Relationship Specialty Start Date End Date Gabriel Berumen MD [address] [place] [address] [phone] PCP - General Internal Medicine 02/12/15
--- OUTSIDE RECORDS SUMMARY | 2024-08-16 08:45 | XMS_ITS | Clinical Summary ---
Author Organization [facility] Address [address] [place] [address] Care Team Providers Care Mgmt Consultant Name Role Phone Gabriel Berumen MD Primary Care Provider [phone] Allergies No known active allergies Medications Medication [...] Tablet by mouth daily. 0 07/07/2023 Active clotrimazole-betamet hasone (Lotrisone) cream Apply bid to affected area 30 g 3 08/14/2023 Active Dapagliflozin Propanediol 10 MG Tab Take [...] partial colectomy 03/09/2017 Overview: Around 2007 at [facility] for diverticulitis Tobacco use disorder 05/05/2016 Diverticulosis [...] 04/18/2022, 12/12/2020, Additional history exists Covid-19 Vaccine (2022- 4 season) 2023 03/09/2022, 03/18/2021, 09/05/2020, Additional history exists BMI CHECK/ADVISE 04/20/2024 10/15/2023, , 07/15/2021, Additional history exists DEPRESSION SCREENING/FOLLOWUP 04/20/2024 04/18/2022, 06/01/2020 SOCIAL NEEDS SCREENING 04/20/2024 04/29/2021, 2020 DIABETES/HEART DISEASE: ANTONIO PRESTON CHOLESTEROL (LDL) 08/13/2024 08/14/2023, 05/31/2018, 03/10/2017 INFLUENZA (Season Ended) 2024 022, 01/07/2020, 03/08/2019, Additional history exists DTAP/TDAP/TD (2 - Td or Tdap) 05/02/2025 05/02/2015 Care Teams Mgmt Consultant Relationship Specialty Start Date End Date Gabriel Berumen MD [address] [place] [id number] PCP - General Internal Medicine 07/15/21
--- OUTSIDE RECORDS SUMMARY | 2024-08-16 08:45 | XMS_ITS | Encounter Summary ---
Author Organization [facility] Address [address] [place] [address] Care Team Providers Care Tie Buyer Name Role Phone Gabriel Berumen MD Primary Care Provider [phone] Encounter Details Date Type Department Care Team Description 12/09/2023 Woven Wood Shade Assembler Report Medical Records [address] [place], [place] [phone] [place] [address], [facility] Walk-In [facility] [place] [address] Social History Tobacco Use Types Packs/Day Years [...] on filedocumented in this encounter Care Teams Tie Buyer Relationship Specialty Start Date End Date Gabriel Berumen MD [address] [place], [place] [phone] PCP - General Internal Medicine 07/15/21 documented as of this encounter
--- OUTSIDE RECORDS SUMMARY | 2024-08-16 08:45 | XMS_ITS | Encounter Summary ---
Author Organization [facility] Address [address] [place] [address] Care Team Providers Care High Pressure Firer Name Role Phone Rosario Hernandez MD Primary Care Provider [phone] Gabriel Berumen MD Primary Care Provider [phone] Reason for Visit * Reason Onset Date Comments Medication 07/11/2021 Encounter Details Date Type Department Care Team Description 07/11/2021 Refill Gastroenterology - [address] [place] [address] Kimberly Bennett MD Medication Social History Tobacco Use Types Packs/Day Years [...] on filedocumented in this encounter Care Teams High Pressure Firer Relationship Specialty Start Date End Date Rosario Hernandez MD [address] [place] [address] PCP - General Internal Medicine 09/14/20 07/14/21 Gabriel Berumen MD [address] [place] [phone] PCP - General Internal Medicine 07/15/21 documented as of this encounter
--- OUTSIDE RECORDS SUMMARY | 2024-08-16 08:46 | XMS_ITS ---
Author Organization [address] Address [address] [place] [address] Phone Care Team Providers Care Transitional Kindergarten Teacher Name Role Phone Gabriel Berumen MD Primary Care Provider [phone] Transitional Care Management Status:Ongoing (Active) Start date:07/15/2024 Enrollment date:07/15/2024 Enrollment reason:Identified using hospital discharge data Case Team Name Relationship Phone Girish Hernandez LPN Care Manager(Responsible Staff) Continued Care and Services Coordination
--- OUTSIDE RECORDS SUMMARY | 2024-08-16 08:46 | XMS_ITS | Encounter Summary ---
Author Organization [facility] Address [address] [place] [address] Care Team Providers Care Wave Soldering Machine Operator Name Role Phone Rosario Barker MD Primary Care Provider [phone] Gabriel Berumen MD Primary Care Provider [phone] Reason for Visit * Reason Onset Date Comments Ear Pain 06/20/2015 Encounter Details Date Type Department Care Team Description 06/20/2015 Telephone Adult Medicine [address] [phone] Gabriel Berumen MD [address] [place] [address] [phone] Ear Pain Social History Tobacco Use Types Packs/Day Years Used Date Smoking Tobacco: Every Day Cigarettes 0.3 20 Started: 1986 Cigars Smokeless Tobacco: Never Comments:started @ age 12 Alcohol Use Standard Drinks/Week Comments Yes 0 (1 standard drink = 0.6 oz pur e alcohol) 4-6 drinks per mo Sex Assigned at Date Recorded Not on file Job Start Date Occupation Industry Not on file Not on file Not on file documented as of this encounter Miscellaneous Notes * Telephone Encounter - Penelope Valdes R.N. - 06/20/2015 8:56 AM EST [phone] (home) call,placed to patient he is c/o L ear pain c/o sore throat L side of throat painful to swallow he is not sure if he has a temp he states he has been ill x1 day he is concerned as he has a small child at home and does not want to make child ill appt scheduled with dr barker for this am * Telephone Encounter - Connie Gracia - 06/20/2015 8:37 AM EST Symptoms patient is presenting: ear pain, sore throat If pain or injury related was it due to an accident at work or from a motor vehicle accident? NO If yes, gather 3rd republican insurance information Date of accident/Injury: N How long has patient had these symptoms?: x 1 day PCP: Gabriel Berumen Payor: [employer] / Plan: [employer] $0 [employer] [id number] / Product Type: MEDICAID [id number] documented in this encounter Plan of Treatment Not on file documented as of this encounter Visit Diagnoses Not on filedocumented in this encounter Care Teams Wave Soldering Machine Operator Relationship Specialty Start Date End Date Rosario Barker MD [address] [place] [phone] PCP - General Internal Medicine 09/14/20 07/14/21 Gabriel Berumen MD [address] [place] [phone] PCP - General Internal Medicine 07/15/21 documented as of this encounter
--- OUTSIDE RECORDS SUMMARY | 2024-08-16 08:46 | XMS_ITS | Encounter Summary ---
Author Organization [facility] Address [address] [place] [address] Care Team Providers Care Tie Fastener Name Role Phone Rosario Hernandez MD Primary Care Provider [phone] Gabriel Berumen MD Primary Care Provider [phone] Reason for Visit * Reason Onset Date Comments Diverticulitis 12/11/2020 Abdominal Pain 12/11/2020 Cramps 12/11/2020 Encounter Details Date Type Department Care Team Description 12/11/2020 Telephone Adult Medicine [address] [phone] Rosario Hernandez MD [address] [place] [address] [phone] Diverticulitis; Abdominal Pain; Cramps Social History Tobacco [...] traveled recently to another state outside of [place], [place], [place], [place], [place], [place], [place]? NO o If yes, did you [...] vehicle accident? NO If yes, gather 3rd libertarian insurance information Date of accident/Injury: How long has patient had these symptoms?: Five days PCP: Rosario Hernandez Payor: [employer] FFS / Plan: [facility] [employer] / Product Type: MEDICAID RISK documented in this encounter Plan of Treatment Not on file documented as of this encounter Visit Diagnoses Not on filedocumented in this encounter Care Teams Tie Fastener Relationship Specialty Start Date End Date Rosario Hernandez MD [address] [place] [address] [phone] PCP - General Internal Medicine 09/14/20 07/14/21 Gabriel Berumen MD [address] [place] [address] [phone] PCP - General Internal Medicine 07/15/21 documented as of this encounter
--- OUTSIDE RECORDS SUMMARY | 2024-08-16 08:46 | XMS_ITS | Encounter Summary ---
Author Organization [facility] Address [address] [place] [address] Care Team Providers Care Script Artist Name Role Phone Rosario Hernandez MD Primary Care Provider [phone] Gabriel Berumen MD Primary Care Provider [phone] Encounter Details Date Type Department Care Team Description 07/05/2018 Deputy Of Counter Intelligence Report Medical Records [address] [place] [address] Lobito Simon Social History Tobacco Use Types [...] on filedocumented in this encounter Care Teams Script Artist Relationship Specialty Start Date End Date Rosario Hernandez MD [address] [place] [address] PCP - General Internal Medicine 09/14/20 07/14/21 Gabriel Berumen MD [address] [place] [address] PCP - General Internal Medicine 07/15/21 documented as of this encounter
--- OUTSIDE RECORDS SUMMARY | 2024-08-16 08:46 | XMS_ITS | Encounter Summary ---
Author Organization [facility] Address [address] [place] [address] Care Team Providers Care Clinical Secretary Name Role Phone Rosario Hernandez MD Primary Care Provider [phone] Gabriel Berumen MD Primary Care Provider [phone] Encounter Details Date Type Department Care Team Description 03/07/2021 Orders Only Adult Medicine [address] [address] Mariah Campbell PA-C LLQ pain Social History Tobacco Use Types Packs/Day Years [...] PM EST documented as of this encounter Progress Notes * Mariah Campbell PA-C - 03/07/2021 4:13 PM EST See telephone encounter from 03/07/21 Mariah Campbell PA-C documented in this encounter Plan of Treatment Not on file documented as of this encounter Procedures Procedure Name Priority Date/Time Associated Diagnosis Comments CT ABD & PELVIS W/O CONTRAST STAT 03/06/2021 LLQ pain documented in this encounter Results * CT ABD & PELVIS W/O CONTRAST (03/06/2021) Mariah Campbell PA-C CT SCANS Performing Organization Address City/State/[facility] Co de Phone Number [facility] [address] [place] [address] documented in this encounter Visit Diagnoses Diagnosis LLQ pain Abdominal pain, left lower quadrant documented in this encounter Care Teams Clinical Secretary Relationship Specialty Start Date End Date Rosario Hernandez MD [address] [place] [address] PCP - General Internal Medicine 09/14/20 07/14/21 Gabriel Berumen MD [address] [place] [address] 457[address] PCP - General Internal Medicine 07/15/21 documented as of this encounter
--- OUTSIDE RECORDS SUMMARY | 2024-08-16 08:46 | XMS_ITS | Encounter Summary ---
Author Organization [facility] Address [address] [place] [address] Care Team Providers Care Exchange Consultant Name Role Phone Rosario Hernandez MD Primary Care Provider [phone] Gabriel Berumen MD Primary Care Provider [phone] Encounter Details Date Type Department Care Team Description 07/08/2018 Release of Information Medical Records [address] [place] [address] Abstract, Provider Social History Tobacco Use Types [...] on filedocumented in this encounter Care Teams Exchange Consultant Relationship Specialty Start Date End Date Rosario Hernandez MD [address] [place] [address] [phone] PCP - General Internal Medicine 09/14/20 07/14/21 Gabriel Berumen MD [address] [place] [address] [phone] PCP - General Internal Medicine 07/15/21 documented as of this encounter
--- OUTSIDE RECORDS SUMMARY | 2024-08-16 08:46 | XMS_ITS | Encounter Summary ---
Author Organization [facility] Address [address] [place] [address] Care Team Providers Care Market Basket Maker Name Role Phone Rosario Hernandez MD Primary Care Provider [phone] Gabriel Berumen MD Primary Care Provider [phone] Encounter Details Date Type Department Care Team Description 03/07/2021 Telephone Adult Medicine [address] [phone] Mariah Campbell PA-C Social History Tobacco Use [...] on filedocumented in this encounter Care Teams Market Basket Maker Relationship Specialty Start Date End Date Rosario Hernandez MD [address] [place] [phone] PCP - General Internal Medicine 09/14/20 07/14/21 Gabriel Berumen MD [address] [place] [address] 64457 PCP - General Internal Medicine 07/15/21 documented as of this encounter
--- OUTSIDE RECORDS SUMMARY | 2024-08-16 08:46 | XMS_ITS | Encounter Summary ---
Author Organization [facility] Address [address] [place] [address] Care Team Providers Care Banking Consultant Name Role Phone Rosario Hernandez MD Primary Care Provider [phone] Gabriel Berumen MD Primary Care Provider [phone] Encounter Details Date Type Department Care Team Description 10/20/2018 Release of Information Medical Records [address] [place] [address] Abstract, Provider Social History Tobacco Use Types [...] on filedocumented in this encounter Care Teams Banking Consultant Relationship Specialty Start Date End Date Rosario Hernandez MD [address] [place] [address] [phone] PCP - General Internal Medicine 09/14/20 07/14/21 Gabriel Berumen MD [address] [place] [address] [phone] PCP - General Internal Medicine 07/15/21 documented as of this encounter
--- OUTSIDE RECORDS SUMMARY | 2024-08-16 08:46 | XMS_ITS | Encounter Summary ---
Author Organization [facility] Address [address] [place] [address] Care Team Providers Care Handicraft Or Hobby Shop Manager Name Role Phone Rosario Hernandez MD Primary Care Provider [phone] Gabriel Berumen MD Primary Care Provider [phone] Encounter Details Date Type Department Care Team Description 06/18/2018 Orders Only Medical Records [address] [place] [address] Mariah Campbell PA-C Social History Tobacco Use [...] on filedocumented in this encounter Care Teams Handicraft Or Hobby Shop Manager Relationship Specialty Start Date End Date Rosario Hernandez MD [address] [place] [address] PCP - General Internal Medicine 09/14/20 07/14/21 Gabriel Berumen MD [address] [place] [address] PCP - General Internal Medicine 07/15/21 documented as of this encounter
[2024-08-16 12:51] LABS: Influenza A PCR NEGATIVE (Negative); Influenza B PCR NEGATIVE (Negative); Resp Syncy Virus RNA Qual PCR NEGATIVE (Negative); SARS COV2 PCR INHOUSE POSITIVE (Negative)
== END 2024-08-16 08:02 | disposition home or self-care (01) ==
LOC: HO.LAB 08:01
PROVIDERS: Physician Assistant; PCP Internal Medicine
DX: U07.1 COVID-19 (principal); J22 Unspecified acute lower respiratory infection
CPT/HCPCS: 0241U

== ENCOUNTER 2024-08-16 08:33 | Outpatient (REF) | payer BC, SELFPAY ==
--- NOTE | ~2024-08-16 | XR_ITS ---
EXAMINATION: XR CHEST CLINICAL INFORMATION: R05.9 - Cough, unspecified COMPARISON: None available. TECHNIQUE: 2 views of the chest were obtained. FINDINGS: Left inferior approach single lead defibrillator noted. Lead lies over the midline of the heart. The cardiac, hilar, and mediastinal contours are normal. Lungs are normally pneumatized with minor linear atelectasis left base. Lungs otherwise clear. There is no pneumothorax or pleural effusion. There is no focal osseous or soft tissue abnormality. XR/XR chest 2V IMPRESSION: No active pulmonary disease. Electronically signed by: Aneudy Chaves MD 08/16/2024 08:50 AM EDT
--- OUTSIDE RECORDS SUMMARY | 2024-08-16 08:54 | XMS_ITS | Encounter Summary ---
Author Organization [facility] Address [address] [place] [address] Care Team Providers Care Leather Goods Maker Name Role Phone Gabriel Berumen MD Primary Care Provider [phone] Encounter Details Date Type Department Care Team Description 09/17/2023 Customer Loyalty Representative Report Medical Records [address] [place] [address] Leelee Saldaña MD Social History Tobacco Use [...] on filedocumented in this encounter Care Teams Leather Goods Maker Relationship Specialty Start Date End Date Gabriel Berumen MD [address] [place], [place] [phone] PCP - General Internal Medicine 07/15/21 documented as of this encounter
--- OUTSIDE RECORDS SUMMARY | 2024-08-16 08:54 | XMS_ITS | Encounter Summary ---
Author Organization [facility] Address [address] [place] [address] Care Team Providers Care Betting Agency Manager Name Role Phone Rosario Hernandez MD Primary Care Provider [phone] Gabriel Berumen MD Primary Care Provider [phone] Reason for Visit * Reason Comments E-prescribe Rx Request Encounter Details Date Type Department Care Team Description 05/12/2015 Refill Adult Medicine [facility] [address] [place] [address] [phone] Gabriel Berumen MD [address] [place] [address] [phone] E-prescribe Rx Request Social History Tobacco Use Types Packs/Day Years Used Date Smoking Tobacco: Every Day Cigarettes 0.3 20 Started: 1986 Cigars Smokeless Tobacco: Never Alcohol Use Standard Drinks/Week Comments Yes 0 (1 standard drink = 0.6 oz pur e alcohol) 4-6 drinks per mo Sex Assigned at Date Recorded Not on file Job Start Date Occupation Industry Not on file Not on file Not on file documented as of this encounter Miscellaneous Notes * Telephone Encounter - Gabriel Berumen MD - 05/14/2015 9:04 AM EST i have never meet this patient i have to evaluate him prior to starting him on this med * Telephone Encounter - Awilda Motta - 05/14/2015 8:08 AM EST Patient would like script to be: E-PRESCRIBED/FAXED TO PHARMACY WHEN WAS THE PATIENT'S LAST APPOINTMENT IN ADULT MEDICINE? 05/02/15 WHEN WAS THE LAST TIME THE PATIENT SAW THEIR PCP? Never seen pcp Does patient have an upcoming appointment? Yes 07/14/15 (THE MEDICATION REQUESTED IS ON THE MED LIST ABOVE) All of the medications requested were on the CURRENT MEDS list Did you check the Pharmacy information above?: YES Patient wants: 30 -day supply Is this a mail order prescription request ? NO Patients current insurance carrier is: Payor: [employer] / Plan: [employer] $0 [employer] [id number] / Product Type: MEDICAID [id number] documented in this encounter Plan of Treatment Not on file documented as of this encounter Visit Diagnoses Not on filedocumented in this encounter Care Teams Betting Agency Manager Relationship Specialty Start Date End Date Rosario Hernandez MD [address] [place] [address] [phone] PCP - General Internal Medicine 09/14/20 07/14/21 Gabriel Berumen MD [address] [place] [address] [phone] PCP - General Internal Medicine 07/15/21 documented as of this encounter
--- OUTSIDE RECORDS SUMMARY | 2024-08-16 08:54 | XMS_ITS | Encounter Summary ---
Author Organization [facility] Address [address] [place] [address] Care Team Providers Care Ironer Hand Name Role Phone Gabriel Berumen MD Primary Care Provider [phone] Encounter Details Date Type Department Care Team Description 07/07/2022 Survey Project Manager Report Medical Records [address] [place] [address] Leelee Saldaña MD Social History Tobacco Use [...] on filedocumented in this encounter Care Teams Ironer Hand Relationship Specialty Start Date End Date Gabriel Berumen MD [address] [place], [place] [phone] PCP - General Internal Medicine 07/15/21 documented as of this encounter
--- OUTSIDE RECORDS SUMMARY | 2024-08-16 08:54 | XMS_ITS | Encounter Summary ---
Author Organization [facility] Address [address] [place] [address] Care Team Providers Care Operations Business Partner Name Role Phone Gabriel Berumen MD Primary Care Provider [phone] Encounter Details Date Type Department Care Team Description 04/07/2022 Access Clerk Report Medical Records [address] [place] [address] Leelee Saldaña MD Social History Tobacco Use [...] on filedocumented in this encounter Care Teams Operations Business Partner Relationship Specialty Start Date End Date Gabriel Berumen MD [address] [place], [place] [phone] PCP - General Internal Medicine 07/15/21 documented as of this encounter
--- OUTSIDE RECORDS SUMMARY | 2024-08-16 08:54 | XMS_ITS | Encounter Summary ---
Author Organization [facility] Address [address] [place] [address] Care Team Providers Care Automation Test Developer Name Role Phone Rosario Hernandez MD Primary Care Provider [phone] Gabriel Berumen MD Primary Care Provider [phone] Reason for Visit * Reason Onset Date Comments REFERRAL 06/01/2017 Encounter Details Date Type Department Care Team Description 06/01/2017 Telephone Physiatry - [address] [phone] Easton Barnard DO REFERRAL Social History Tobacco Use Types Packs/Day Years [...] encounter Miscellaneous Notes * Telephone Encounter - Trang Raygoza - 06/12/2017 9:29 AM EST I spoke with the patient and he states he saw Dr Berumen on 06/11/17. Dr Berumen put him on blood thinnersfor 6 months and states he does not need this physiatry referral appointment. * Telephone Encounter - Trang Raygoza - 06/01/2017 3:04 PM EST Patient is referred to: physiatry. Reason for referral: LEFT LOWER LEG PAIN, SEE X-RAYS OF ANKLE Priority: Routine I just spoke with the patient and he states he has a blood clot in his leg. Does the patient still need to see Physiatry? Thank You documented in this encounter Plan of Treatment Not on file documented as of this encounter Visit Diagnoses Not on filedocumented in this encounter Care Teams Automation Test Developer Relationship Specialty Start Date End Date Rosario Hernandez MD [address] [place] [phone] PCP - General Internal Medicine 09/14/20 07/14/21 Gabriel Berumen MD [address] [place] [address] 94287 PCP - General Internal Medicine 07/15/21 documented as of this encounter
--- OUTSIDE RECORDS SUMMARY | 2024-08-16 08:54 | XMS_ITS | Encounter Summary ---
Author Organization [facility] Address [address] [place] [address] Care Team Providers Care Shipping Manager Name Role Phone Rosario Hernandez MD Primary Care Provider [phone] Gabriel Berumen MD Primary Care Provider [phone] Encounter Details Date Type Department Care Team Description 10/28/2019 Orders Only Medical Records [address] [place] [address] Kimberly Bennett MD Social History Tobacco Use Types Packs/Day [...] Name Priority Date/Time Associated Diagnosis Comments OUTSIDE PATHOLOGY Routine 10/26/2019 documented in this encounter Results * OUTSIDE PATHOLOGY (10/26/2019) Kimberly Bennett MD OUTSIDE LAB documented in this encounter Visit Diagnoses Not on filedocumented in this encounter Care Teams Shipping Manager Relationship Specialty Start Date End Date Rosario Hernandez MD [address] [place] [address] PCP - General Internal Medicine 09/14/20 07/14/21 Gabriel Berumen MD [address] [place] [address] 117[address] PCP - General Internal Medicine 07/15/21 documented as of this encounter
--- OUTSIDE RECORDS SUMMARY | 2024-08-16 08:54 | XMS_ITS | Encounter Summary ---
Author Organization [facility] Address [address] [place] [address] Care Team Providers Care Magistrate Judge Name Role Phone Gabriel Berumen MD Primary Care Provider [phone] Encounter Details Date Type Department Care Team Description 12/09/2023 Retoucher Report Medical Records [address] [place], [place] [phone] [place] [address], [facility] [place] [address] Social History Tobacco Use Types Packs/Day Years [...] on filedocumented in this encounter Care Teams Magistrate Judge Relationship Specialty Start Date End Date Gabriel Berumen MD [address] [place], [place] [phone] PCP - General Internal Medicine 07/15/21 documented as of this encounter
--- OUTSIDE RECORDS SUMMARY | 2024-08-16 08:54 | XMS_ITS | Encounter Summary ---
Author Organization [facility] Address [address] [place] [address] Care Team Providers Care Ross Lift Operator Name Role Phone Gabriel Berumen MD Primary Care Provider [phone] Encounter Details Date Type Department Care Team Description 08/06/2022 Telephone [facility] Medical [facility] [address] [facility] [address] [place] [phone] Marvel Norman, RAZA Social History Tobacco [...] on filedocumented in this encounter Care Teams Ross Lift Operator Relationship Specialty Start Date End Date Gabriel Berumen MD [address] [place] [address] PCP - General Internal Medicine 07/15/21 documented as of this encounter
--- OUTSIDE RECORDS SUMMARY | 2024-08-16 08:54 | XMS_ITS | Encounter Summary ---
Author Organization [facility] Address [address] [place] [address] Care Team Providers Care Meteorology Professor Name Role Phone Gabriel Berumen MD Primary Care Provider [phone] Encounter Details Date Type Department Care Team Description 11/20/2022 [place] Measurer Report Medical Records [address] [place] [address] Leelee Saldaña MD Social History Tobacco Use [...] on filedocumented in this encounter Care Teams Meteorology Professor Relationship Specialty Start Date End Date Gabriel Berumen MD [address] [place] [phone] PCP - General Internal Medicine 07/15/21 documented as of this encounter
--- OUTSIDE RECORDS SUMMARY | 2024-08-16 08:54 | XMS_ITS | Encounter Summary ---
Author Organization [facility] Address [address] [place] [address] Care Team Providers Care Coremaker Pipe Name Role Phone Rosario Hernandez MD Primary Care Provider [phone] Gabriel Berumen MD Primary Care Provider [phone] Reason for Visit * Reason Onset Date Comments Breathing Problems 02/11/2018 Encounter Details Date Type Department Care Team Description 02/11/2018 Telephone Adult Medicine [address] [phone] Gabriel Berumen MD [address] [place] [address] [phone] Breathing Problems Social History Tobacco Use Types Packs/Day Years [...] encounter Miscellaneous Notes * Telephone Encounter - Paige Reina L.P.N. - 02/11/2018 4:33 PM EDT Pt co cough,st,,sob,pt states his chest feels tight ,pt advised er visit Or walk in ctr ,pt agreed * Telephone Encounter - Charito Mcgraw - 02/11/2018 4:29 PM EDT Symptoms patient is presenting: pt kelly states that he has been having trouble breathing as well as chest conjestion and sore throat If pain or injury related was it due to an accident at work or from a motor vehicle accident? NO If yes, gather 3rd constitution party insurance information Date of accident/Injury: How long has patient had these symptoms?: 1 week PCP: Gabriel Berumen Payor: [employer] FFS / Plan: [employer] / Product Type: MEDICAID RISK documented in this encounter Plan of Treatment Not on file documented as of this encounter Visit Diagnoses Not on filedocumented in this encounter Care Teams Coremaker Pipe Relationship Specialty Start Date End Date Rosario Hernandez MD [address] [place] [address] 313[address] PCP - General Internal Medicine 09/14/20 07/14/21 Gabriel Berumen MD [address] [place] [address] PCP - General Internal Medicine 07/15/21 documented as of this encounter
--- OUTSIDE RECORDS SUMMARY | 2024-08-16 08:54 | XMS_ITS | Encounter Summary ---
Author Organization [facility] Address [address] [place] [address] Care Team Providers Care Broadband Technician Name Role Phone Rosario Hernandez MD Primary Care Provider Gabriel Berumen MD Primary Care Provider [phone] Encounter Details Date Type Department Care Team Description 01/02/2016 Transfer Records Medical Records [address] [place] [address] Abstract, Provider Social History Tobacco Use Types [...] on filedocumented in this encounter Care Teams Broadband Technician Relationship Specialty Start Date End Date Rosario Hernandez MD [address] [place] [address] [phone] PCP - General Internal Medicine 09/14/20 07/14/21 Gabriel Berumen MD [address] [place] [address] [phone] PCP - General Internal Medicine 07/15/21 documented as of this encounter
--- OUTSIDE RECORDS SUMMARY | 2024-08-16 08:54 | XMS_ITS | Encounter Summary ---
Author Organization [facility] Address [address] [place] [address] Care Team Providers Care Area Coordinator Name Role Phone Rosario Hernandez MD Primary Care Provider [phone] Gabriel Berumen MD Primary Care Provider Encounter Details Date Type Department Care Team Description 06/12/2019 Hospital Medical Records [address] [place] [address] America Harrell Social History Tobacco Use Types Packs/Day Years [...] on filedocumented in this encounter Care Teams Area Coordinator Relationship Specialty Start Date End Date Rosario Hernandez MD [address] [place] [address] [phone] PCP - General Internal Medicine 09/14/20 07/14/21 Gabriel Berumen MD [address] [place] [address] [phone] PCP - General Internal Medicine 07/15/21 documented as of this encounter
== END 2024-08-16 08:34 | disposition home or self-care (01) ==
LOC: HO.HMGCX 08:33
PROVIDERS: PCP Internal Medicine; Visit Provider Physician Assistant
DX: R05.9 Cough, unspecified (principal)
CPT/HCPCS: 71046

== ENCOUNTER → 2024-08-16 08:37 | Outpatient (BNV) | payer BC, SELFPAY | PROVIDERS: PCP Internal Medicine; Visit Provider Radiology Diagnostic Radiology | DX: R05.9 Cough, unspecified (principal) | CPT/HCPCS: 71046 ==

== ENCOUNTER 2025-02-10 08:40 | Outpatient (AMB) | payer BC, SELFPAY ==
[2025-02-10 08:47] VITALS: BP 118/70; PULSE 86; TEMP 36.7; O2SAT 96; BMI 40.3
--- NOTE | 2025-02-10 08:47 | AM.OFFWIN_ITS ---
Intake Vital Signs 02/10/25 08:47 Height 5 ft 10 in Weight 281 lb BMI 40.3 BP 118/70 Blood Pressure Location Rt brachial Position Sitting Pulse 86 Pulse Source Pulse Oximeter Temp 98.1 F Temp Source Oral Pulse Oximetry (%) 96 Oxygen Delivery Method Room Air Intake Visit Reasons: EP Swollen private area Intake Note: Patient presents with c/o pain at the tip of penis - unsure if he has a cut Patient Tobacco Use Status: Former Tobacco user Allergies No Known Allergies (NKA) Allergy (Verified 02/10/25 08:50) HPI HPI Comments History of Present Illness Details This is a 49-year-old male with a past medical history of coronary artery disease, neo-tyxgbby-nrrwhqcyg diabetes and ventral wall hernia repair on January 26 presenting for evaluation of pain at the tip of his penis and he has had for approximately 1 month. Patient has been wearing a binder on his abdomen following his surgical procedure and is therefore unable to see his penis. Patient states that he has not been active for over 10 years. He states that he has pain and, scrotal pain difficulty when retracting his foreskin over the head of his penis. Patient states he is able to retract the foreskin and urinate however ?it just takes more time to pull it back?. Patient denies having any urinary frequency, dysuria, testicular pain, scrotal pain or penile discharge. [facility] Social History Patient Tobacco Use Status: Former Tobacco user Review of Systems Const All systems reviewed & are unremarkable except as noted in HPI and below Reports no additional complaints Eyes Reports no additional complaints ENT Reports no additional complaints Card Reports no additional complaints Resp Reports no additional complaints GI Reports no additional complaints and Denies abdominal pain Denies difficulty urinating, Denies genital lesions, Reports genital pain, Denies dysuria, Denies scrotal swelling, Denies testicular pain and Denies urinary frequency Musc Reports no additional complaints Skin/Breast Reports system reviewed and no additional complaints, except as documented Psych Reports no additional complaints Kyrie/Lymph Reports no additional complaints Physical Exam Vital Signs: Last Vital Signs Temp 98.1 F 02/10/25 08:47 Pulse 86 02/10/25 08:47 BP 118/70 02/10/25 08:47 Pulse Ox 96 02/10/25 08:47 Oxygen Delivery Method Room Air 02/10/25 08:47 BMI result Body Mass Index 40.3 Const General: cooperative, healthy appearing, comfortable, no acute distress, well developed, alert, awake and well groomed; No lethargic Nutritional Appearance: obese Orientation/consciousness: patient oriented x3 and No lethargic Limitations: other limitations (wearing abdominal wall binder s/p hernia surgery) Male General Exam: No normal external exam, No inguinal lymphadenopathy, No lacerations, Yes Genital lesions present (two lesions of cracked skin on foreskin) and Yes other (difficult to retract foreskin, however able to slowly retract over glans) Penis: uncircumcised, edematous, phimosis, no ulcerations and Genital lesions present (two lesions of cracked skin on foreskin) Meatus: meatus normal Scrotum: scrotum normal Testes: Testes normal Skin Other: cracked skin noted on foreskin, no evidence of a secondary cellulitis, no discharge noted Neuro General: patient oriented x3 Psych Appearance: grossly normal Mental Status: mental status grossly normal Insight: Good insight present (Psych) Judgement: Good judgement present (Psych) Assessment & Plan Assessment & Plan (1) Phimosis of penis: Comment: Incomplete phimosis of penis, able to retract slowly over glands, no penile discharge Code(s): N47.1 - Phimosis Plan: Will empirically treat with a hydrocortisone ointment twice daily for 2 weeks. Patient is encouraged to follow up his primary care in 10 days to 2 weeks, sooner if symptoms worsen. Medications: New hydrocortisone butyrate 0.1% Apply twice daily for 2 weeks 1 appl topical BID 45 grams 0RF skin irritation Coding Level of Care Code Est Pt Level 3 (67765) Diagnoses Phimosis of penis N47.1 Time Spent (min) 20
== END 2025-02-10 09:11 | disposition home or self-care (01) ==
PROVIDERS: PCP Internal Medicine; Visit Provider Physician Assistant
DX: N47.1 Phimosis (principal)

== ENCOUNTER 2025-03-31 10:21 | Outpatient (AMB) | payer BC, SELFPAY ==
[2025-03-31 10:50] VITALS: BP 86/58; PULSE 77; TEMP 36.9; O2SAT 94; BMI 40.2
--- NOTE | 2025-03-31 10:50 | AM.OFFWIN_ITS ---
Intake Vital Signs 03/31/25 10:50 03/31/25 11:00 Height 5 ft 10 in Weight 280 lb BMI 40.2 BP 86/58 L 92/66 Blood Pressure Location Rt brachial Lt brachial Position Sitting Sitting Pulse 77 Pulse Source Pulse Oximeter Temp 98.5 F Temp Source Oral Pulse Oximetry (%) 94 Oxygen Delivery Method Room Air Intake Visit Reasons: EP Irritation on penis Intake Note: pt presents with recurrent irritation to penis - hydrocortisone prescribed wasn't helpful Patient Tobacco Use Status: Former Tobacco user Allergies No Known Allergies (NKA) Allergy (Verified 03/31/25 11:02) Do you need a note to return to daycare/school/sports/work: No HPI HPI Comments History of Present Illness Details This is a 49-year-old male with a past medical history of coronary artery disease, [id number] diabetes and ventral wall hernia repair on January 26 presenting for evaluation of irritation at the tip of his uncircumcised penis that he has had for the past two months. Patient states that he is able to retract the foreskin of his penis but at times it becomes difficult and uncomfortable. Patient denies having any fevers, chills, dysuria, discharge from his penis, scrotal pain , testicular pain, new sexual partners, or hyperglycemia. Patient was seen in January and was discharged home with hydrocortisone cream that he has used topically as directed with only minimal relief. [facility] Social History Patient Tobacco Use Status: Former Tobacco user Review of Systems Const All systems reviewed & are unremarkable except as noted in HPI and below Denies chills, Denies fatigue and Denies fever(s) GI Reports as per HPI and Denies abdominal pain Reports as per HPI, Denies hematuria, Denies oliguria, Denies difficulty urinating, Reports genital lesions (on glans of penis only), Denies scrotal swelling, Denies testicular mass, Denies testicular pain, Denies urinary frequency, Denies urinary hesitancy, Denies urinary incontinence and Denies urinary urgency Musc Reports no additional complaints Skin/Breast Reports system reviewed and no additional complaints, except as documented, Reports pruritus (distal penis) and Reports erythema Neuro Reports no additional complaints Endo Reports no additional complaints and Denies fatigue Aller/Immun Reports no additional complaints Physical Exam Vital Signs: Last Vital Signs Temp 98.5 F 03/31/25 10:50 Pulse 77 03/31/25 10:50 BP 86/58 L 03/31/25 10:50 Pulse Ox 94 03/31/25 10:50 Oxygen Delivery Method Room Air 03/31/25 10:50 BMI result Body Mass Index 40.2 Const General: cooperative, comfortable, no acute distress, well developed, alert, awake and Physically active; No ill appearing or lethargic Nutritional Appearance: obese Orientation/consciousness: patient oriented x3 and No lethargic Limitations: no limitations Other: uncircumcised male; no clinical evidence of phimosis or paraphimosis, there is scant white discharge noted on the glans of the penis, no penile discharge, no surrounding erythema, no tenderness to direct examination General: Yes bladder normal to palpation Penis: uncircumcised, not edematous, not erythematous, foreskin retracts, no paraphimosis, no phimosis and other (white scant material noted on glans of penis; no penile discharge) Meatus: meatus normal, no meatla discharge, No Blood at meatus present and No Erythema at meatus Neuro General: patient oriented x3 Psych Appearance: grossly normal Mental Status: mental status grossly normal Insight: Good insight present (Psych) Judgement: Good judgement present (Psych) Results AMB Random Glucose (hemocue) AMB Random Glucose (hemocue) 118 mg/dL Last Edit by Cheryl Villa CMA on 03/31/25 11:18 Assessment & Plan Assessment & Plan (1) Balanitis: Comment: There is no clinical evidence of phimosis or paraphimosis as the foreskin is able to be retracted and the patient is not hyperglycemic. Patient will be discharged home with clotrimazole cream to use topically twice daily. Patient's primary care is through [facility] and the patient will contact them to request outpatient urology consultation. Code(s): N48.1 - Balanitis Plan: Clotrimazole cream twice daily, Urology consultation when possible. Orders: Orders AMB Random Glucose (hemocue) Today Z13.9 - Encounter for screening, unspecified Medications: New clotrimazole 1% apply twice daily x 2 weeks 1 appl topical BID 30 grams 0RF Coding Level of Care Code Est Pt Level 3 (61611) Diagnoses Balanitis N48.1 Time Spent (min) 20
[2025-03-31 11:00] VITALS: BP 92/66
== END 2025-03-31 11:51 | disposition home or self-care (01) ==
PROVIDERS: PCP Internal Medicine; Visit Provider Physician Assistant
DX: N48.1 Balanitis (principal); Z13.9 Encounter for screening, unspecified

== ENCOUNTER → 2025-03-31 10:21 | Outpatient (BNVA) | payer BC, SELFPAY | PROVIDERS: PCP Internal Medicine; Visit Provider Physician Assistant | DX: N48.1 Balanitis (principal); I25.10 Atherosclerotic heart disease of native coronary artery without angina pectoris; E11.9 Type 2 diabetes mellitus without complications | CPT/HCPCS: 82948 ==